=== PATIENT | female | born 1955 | race Caucasian/White ===

== ENCOUNTER 2018-08-20 05:41 | Day surgery (SDC) | payer MEDICAID, SELFPAY ==
[2018-08-12 14:36] VITALS: BMI 26.4
[2018-08-19 06:54] VITALS: BP 114/86; PULSE 83; RESP 16; TEMP 36.2; O2SAT 100; BMI 25.7
[2018-08-20 06:01] VITALS: BP 130/98; PULSE 85; RESP 16; TEMP 36.8; O2SAT 98; BMI 25.9
--- NOTE | 2018-08-20 06:30 | IMM_PTH ---
PATIENT: KAROL ASHTON LOC: EN U#:[id number] AGE/SX: 62/F ROOM: RE08/20/[address]: Dr. Enrique England MD : 1955 BED: DIS: 08/20/2018 SPEC #: [id number] RECD: 08/21/18 09:06 STATUS: SULLY REQ #: [id number] THEODORA: 08/20/18 06:[address]: Enrique England DEPT: IMMUNOHISTOCHEMISTRY RECD BY: Thea Gilbert ENTERED: 08/21/18 09:06 SP TYPE: IMMUNO OTHR DR: Dr. Melissa Kelly MD Tissues: A - Stomach, NOS Procedures: H Pylori (initial) PHYSICIAN & INSTITUTION [place] [address] SPECIMEN INFORMATION: Tissue Source: A - Gastric antrum biopsy Clinical Info: Anemia Specimen Number: [id number] CPT code: 58350 METHODOLOGY: Deparaffinized sections of prefer/formalin-fixed tissue or PAP/DQ stained slides are incubated with monoclonal/polyclonal antibodies/oligonucleotide probes. Localization is made via biotin free immunoperoxidase method. Appropriate controls are performed and reacted as expected. Results on target cell population are indicated in the following table: RESULTS: ANTIBODY / CLONE RESULT Block A H Pylori (polyclonal) negative These tests were developed and their performance characteristics determined by [facility]. They may not have been cleared or approved by the U.S. Food and Drug Administration. The FDA has determined that such clearance or approval is not necessary. INTERPRETATION: A. Gastric antrum, biopsy: Negative for Helicobacter pylori organisms. SJ:jessica 08/21/18
--- NOTE | 2018-08-20 06:30 | EGD_PTH ---
PATIENT: KAROL ASHTON LOC: EN U#:[id number] AGE/SX: 62/F ROOM: RE08/20/[address]: Dr. Enrique England MD : 1955 BED: DIS: 08/20/2018 SPEC #: [id number] RECD: 08/20/18 09:30 STATUS: SULLY ROSA MARIA #: [id number] THEODORA: 08/20/18 06:[address]: Enrique England DEPT: SURGICAL PATHOLOGY RECD BY: Kervin Hussein ENTERED: 08/20/18 12:31 SP TYPE: EGD BIOPSY OTHR DR: Dr. Melissa Kelly MD Tissues: A - Gastric mucous membrane B - Gastric mucous membrane C - Esophageal mucous membrane D - Transverse colon Procedures: Special Stain Group II Special Stain Group I Surgery Specimen Level IV GMS Stain (control) Alcian Blue/PAS (control) HEADER OPERATION: Colonoscopy, [place] [place] DIAGNOSIS: Anemia TISSUE SUBMITTED: A - Biopsy gastric antrum, H. pylori and path, B - Biopsy body of stomach polyp, C - Biopsy distal esophagus, D - Polyp mid transverse MICROSCOPIC DIAGNOSIS A. Gastric antrum, biopsy: Mild gastritis. See microscopic description and comment. B. Body of stomach polyp, biopsy: Consistent with fundic gland polyp. C. Distal esophagus, biopsy: Fragments of squamous epithelium and gastric epithelium with extensive ulceration, associated acute and chronic inflammation. Intestinal metaplasia (goblet cell metaplasia) is not identified. Special stain for fungi is negative for organisms; matched control is appropriate. See comment. D. Polyp mid transverse colon, biopsy: Tubular adenoma. Fragments of fecal material. SJ:jessica 08/21/18 COMMENT A. The results of immunohistochemistry for Helicobacter pylori will be reported separately ([id number]). C. Alcian blue/PAS stain with matched control is also used in the evaluation of the specimen. The specimen predominantly consists of squamous epithelium. MICROSCOPIC DESCRIPTION Slides are reviewed. A. The specimen shows fragments of gastric mucosa with chronic inflammatory cell infiltrates in the lamina propria consisting of lymphocytes and plasma cells, consistent with mild chronic gastritis. GROSS DESCRIPTION A - Received in fixative is one container labeled with the patient's name and designated biopsy gastric antrum. The specimen consists of one irregular fragment of light barkley soft tissue that measures 0.4 x 0.3 x 0.1 cm. The specimen is totally submitted in one cassette. B - Received in fixative is one container labeled with the patient's name and designated biopsy polyp body of stomach. The specimen consists of one irregular fragment of light barkley soft tissue that measures 0.4 x 0.3 x 0.1 cm. The specimen is totally submitted in one cassette. C - Received in fixative is one container labeled with the patient's name and designated biopsy distal esophagus. The specimen consists of multiple irregular fragments of light barkley soft tissue that in aggregate measure 1.5 x 1 x 0.1 cm. The specimen is totally submitted in one cassette. D - Received in fixative is one container labeled with the patient's name and designated polyp mid transverse. The specimen consists of multiple irregular fragments of barkley soft tissue mixed with fecal material that in aggregate measure 2.5 x 1 x 0.2 cm. The specimen is totally submitted in one cassette. / SJ:jessica 08/20/18 TC:1 CPT: 78294 x4, 13123, 71665
[2018-08-20 07:15] VITALS: BP 122/89; BP 130/98; PULSE 85; RESP 16; TEMP 36.4; O2SAT 100
[2018-08-20 07:20] VITALS: BP 130/98; BP 134/101; PULSE 82; RESP 16; O2SAT 98
[2018-08-20 07:25] VITALS: BP 130/98; BP 131/88; PULSE 82; RESP 16; O2SAT 98
[2018-08-20 07:30] VITALS: BP 130/98; BP 136/100; PULSE 80; RESP 16; TEMP 36.7; O2SAT 99
[2018-08-20 07:37] VITALS: BP 130/98
--- NOTE | 2018-08-25 10:16 | OP.ENDO_ITS ---
Patient Name: Katie Bingham Procedure Date: 08/20/2018 6:03 AM Date of : 1955 Age: 62 Procedure: Upper GI endoscopy Indications: Iron deficiency anemia Providers: Enrique England MD Referring MD: Enrique England MD Medicines: See the Anesthesia note for documentation of the administered medications Complications: No immediate complications. Procedure: Pre-Anesthesia Assessment: - Prior to the procedure, a History and Physical was performed, and patient medications and allergies were reviewed. The patient's tolerance of previous anesthesia was also reviewed. The risks and benefits of the procedure and the sedation options and risks were discussed with the patient. All questions were answered, and informed consent was obtained. Prior Anticoagulants: The patient has taken no previous anticoagulant or antiplatelet agents. ASA Grade Assessment: II - A patient with mild systemic disease. After reviewing the risks and benefits, the patient was deemed in satisfactory condition to undergo the procedure. After obtaining informed consent, the endoscope was passed under direct vision. Throughout the procedure, the patient's blood pressure, pulse, and oxygen saturations were monitored continuously. The gastroscope was introduced through the mouth, and advanced to the second part of duodenum. The upper GI endoscopy was accomplished without difficulty. The patient tolerated the procedure well. Scope In: 6:39:29 AM Scope Out: 6:47:11 AM Total Procedure Duration Time 0 hours 7 minutes 42 seconds Findings: The Z-line was irregular and was found 33 cm from the incisors. LA Grade B (one or more mucosal breaks greater than 5 mm, not extending between the tops of two mucosal folds) esophagitis with bleeding was found 33 to 36 cm from the incisors. Biopsies were taken with a cold forceps for histology. A medium-sized hiatal hernia was present. Diffuse mildly erythematous mucosa without bleeding was found in the gastric antrum. Biopsies were taken with a cold forceps for histology. Multiple sessile polyps with no stigmata of recent bleeding were found in the stomach. The polyp was removed with a cold biopsy forceps. Resection and retrieval were complete. The examined duodenum was normal. Impression: - Z-line irregular, 33 cm from the incisors. - LA Grade B reflux esophagitis. Biopsied. - Medium-sized hiatal hernia. - Erythematous mucosa in the antrum. Biopsied. - Multiple gastric polyps. Resected and retrieved. - Normal examined duodenum. Recommendation: - Discharge patient to home. - Resume previous diet. - Continue present medications. - Use Prilosec (omeprazole) 20 mg PO daily. - Telephone my office for pathology results in 1 week. Procedure Code(s): --- Professional --- 53321, Esophagogastroduodenoscopy, flexible, transoral; with biopsy, single or multiple Diagnosis Code(s): --- Professional --- K22.8, Other specified diseases of esophagus K21.0, Gastro-esophageal reflux disease with esophagitis K44.9, Diaphragmatic hernia without obstruction or gangrene K31.89, Other diseases of stomach and duodenum K31.7, Polyp of stomach and duodenum D50.9, Iron deficiency anemia, unspecified CPT copyright 2017 [employer]. All rights reserved. The codes documented in this report are preliminary and upon mortuary technician review may be revised to meet current compliance requirements. Enrique England MD 08/20/2018 7:16:16 AM This report has been signed electronically. Number of Addenda: 0 Note Initiated On: 08/20/2018 6:03 AM
--- NOTE | 2018-08-25 10:17 | OP.ENDO_ITS ---
Patient Name: Katie Bingham Procedure Date: 08/20/2018 6:48 AM Date of : 1955 Age: 62 Procedure: Colonoscopy Indications: Iron deficiency anemia Providers: Enrique England MD Referring MD: Enrique England MD Medicines: See the Anesthesia note for documentation of the administered medications Patient Profile: Last Colonoscopy: none. The patient's first colonoscopy is today. Complications: No immediate complications. Procedure: Pre-Anesthesia Assessment: - Prior to the procedure, a History and Physical was performed, and patient medications and allergies were reviewed. The patient's tolerance of previous anesthesia was also reviewed. The risks and benefits of the procedure and the sedation options and risks were discussed with the patient. All questions were answered, and informed consent was obtained. Prior Anticoagulants: The patient has taken no previous anticoagulant or antiplatelet agents. ASA Grade Assessment: II - A patient with mild systemic disease. After reviewing the risks and benefits, the patient was deemed in satisfactory condition to undergo the procedure. After I obtained informed consent, the scope was passed under direct vision. Throughout the procedure, the patient's blood pressure, pulse, and oxygen saturations were monitored continuously. The Colonoscope was introduced through the anus and advanced to the cecum, identified by appendiceal orifice and ileocecal valve. The colonoscopy was performed without difficulty. The patient tolerated the procedure well. The quality of the bowel preparation was good. The ileocecal valve and the appendiceal orifice were photographed. Scope In: 6:52:08 AM Scope Withdrawal Time 0 hours 9 minutes 23 seconds Scope Out: 7:09:05 AM Total Procedure Duration Time 0 hours 16 minutes 57 seconds Findings: Hemorrhoids were found on perianal exam. Many diverticula were found in the sigmoid colon and descending colon. A 8 mm polyp was found in the mid transverse colon. The polyp was sessile. The polyp was removed with a hot snare. Resection and retrieval were complete. Impression: - Hemorrhoids found on perianal exam. - Diverticulosis in the sigmoid colon and in the descending colon. - One 8 mm polyp in the mid transverse colon, removed with a hot snare. Resected and retrieved. Recommendation: - Discharge patient to home. - Resume previous diet. - Continue present medications. - Repeat colonoscopy in 3 years for surveillance. - Telephone my office for pathology results in 1 week. No signs of lower GI bleeding Blood loss is felt to be secondary to severe reflux esophagitis and likely additional use of NSAIDS Procedure Code(s): --- Professional --- 62358, Colonoscopy, flexible; with removal of tumor(s), polyp(s), or other lesion(s) by snare technique Diagnosis Code(s): --- Professional --- K64.9, Unspecified hemorrhoids D12.3, Benign neoplasm of transverse colon (hepatic flexure or splenic flexure) D50.9, Iron deficiency anemia, unspecified K57.30, Diverticulosis of large intestine without perforation or abscess without bleeding CPT copyright 2017 [employer]. All rights reserved. The codes documented in this report are preliminary and upon agricultural produce commission agent review may be revised to meet current compliance requirements. Enrique England MD 08/20/2018 7:19:44 AM This report has been signed electronically. Number of Addenda: 0 Note Initiated On: 08/20/2018 6:48 AM
--- OUTSIDE RECORDS SUMMARY | 2018-10-24 21:55 | XMS RPT_ITS ---
:1955 Author Organization [facility] Care Team Providers Name Role Phone BAN RODARTE (SYSTEMS TEST ENGINEER) Attending Unavailable TALAMPAS, ANTHONY D Referring Unavailable KARUNA BAKER (MISSING PERSONS INVESTIGATOR) Attending Unavailable TALAMPAS, ANTHONY D Referring Unavailable TALAMPAS, ANTHONY D Attending Unavailable TALAMPAS, ANTHONY D Referring Unavailable RODARTEBAN (SYSTEMS TEST ENGINEER) Referring Unavailable TALAMPAS, ANTHONY D Referring Unavailable TALAMPAS, ANTHONY D Referring Unavailable TALAMPAS, ANTHONY D Attending Unavailable TALAMPAS, ANTHONY D Referring Unavailable TALAMPAS, ANTHONY D Attending Unavailable TALAMPAS, ANTHONY D Referring Unavailable RODARTESTERLINGI (SYSTEMS TEST ENGINEER) Referring Unavailable Marylubul Enrique Attending Unavailable Talampas, Anthony Referring Unavailable Cebul, Enrique Attending Unavailable Talampas, Anthony Primary Care Unavailable Cebul, Enrique Attending Unavailable Cebul, Enrique Referring Unavailable Talampas, Anthony Primary Care Unavailable PROBLEMS PROBLEMS DATE TYPE CONDITION / CODE ATTENDING STATUS SOURCE 08/15/2018 Active Pain in unspecified NA Active [facility] joint / [place] M25.50(ICD-10) Repository 08/15/2018 Active Other specified NA Active [facility] abnormal [place] immunological Repository findings in serum / R76.8(ICD-10) 08/15/2018 Active Spontaneous NA Active [facility] ecchymoses / [place] R23.3(ICD-10) Repository 08/15/2018 Active Anemia, unspecified NA Active [facility] / D64.9(ICD-10) [place] Repository 07/30/2018 Active Abnormality of NA Active [facility] albumin / [place] R77.0(ICD-10) Repository 07/30/2018 Active Unspecified NA Active [facility] osteoarthritis, [place] unspecified site / Repository M19.90(ICD-10) 07/18/2018 Active Pain in left hand / NA Active [facility] M79.642(ICD-10) [place] Repository 07/18/2018 Active Pain in left toe(s) NA Active [facility] / M79.675(ICD-10) [place] Repository 07/18/2018 Active Other specified NA Active [facility] soft tissue [place] disorders / Repository M79.89(ICD-10) 01/20/2018 Active 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 [facility] (current) drug [place] therapy / Repository Z79.899(ICD-10) 01/20/2018 Active Hypothyroidism, NA Active [facility] unspecified / [place] E03.9(ICD-10) Repository 01/20/2018 Active Encounter for NA Active [facility] screening for [place] lipoid disorders / Repository Z13.220(ICD-10) 01/20/2018 Active Pure NA Active [facility] hypercholesterolemi [place] a, unspecified / Repository E78.00(ICD-10) 01/20/2018 Active Encounter for Active [facility] screening for [place] malignant neoplasm Repository of colon / Z12.11(ICD-10) PROCEDURES PROCEDURES No Procedure Records FoundRESULTS RESULTS OPERATIVE REPORT - Observed: 08/25/2018 Status: F Source: [facility] 11:22 AM [facility] REPOSITORY [facility] Medical Records Department [address] [place] [address] Operative Report - Endoscopy MR#: [id number] Acct: [id number] Name: KAROL ASHTON José Luis Rep #: [id number] : 1955 62 From: Enrique England MD PCP: Anthony Kelly MD Status: [facility] Patient Name: Karol Kovacssabrina Ashton Procedure Date: 08/20/2018 6:48 AM Date of : 1955 Age: 62 Procedure: Colonoscopy Indications: Iron deficiency anemia Providers: Enrique England MD Referring MD: Enrique England MD Medicines: See the Anesthesia note for documentation of the administered medications Patient Profile: Last Colonoscopy: none. The patient's first colonoscopy is today. Complications: No immediate complications. Procedure: Pre-Anesthesia Assessment: - Prior to the procedure, a History and Physical was performed, and patient medications and allergies were reviewed. The patient's tolerance of previous anesthesia was also reviewed. The risks and benefits of the procedure and the sedation options and risks were discussed with the patient. All questions were answered, and informed consent was obtained. Prior Anticoagulants: The patient has taken no previous anticoagulant or antiplatelet agents. ASA Grade Assessment: II - A patient with mild systemic disease. After reviewing the risks and benefits, the patient was deemed in satisfactory condition to undergo the procedure. After I obtained informed consent, the scope was passed under direct vision. Throughout the procedure, the patient's blood pressure, pulse, and oxygen saturations were monitored continuously. The Colonoscope was introduced through the anus and advanced to the cecum, identified by appendiceal orifice and ileocecal valve. The colonoscopy was performed without difficulty. The patient tolerated the procedure well. The quality of the bowel preparation was good. The ileocecal valve and the appendiceal orifice were photographed. Scope In: 6:52:08 AM Scope Withdrawal Time 0 hours 9 minutes 23 seconds Scope Out: 7:09:05 AM Total Procedure Duration Time 0 hours 16 minutes 57 seconds Findings: Hemorrhoids were found on perianal exam. Many diverticula were found in the sigmoid colon and descending colon. A 8 mm polyp was found in the mid transverse colon. The polyp was sessile. The polyp was removed with a hot snare. Resection and retrieval were complete. Impression: - Hemorrhoids found on perianal exam. - Diverticulosis in the sigmoid colon and in the descending colon. - One 8 mm polyp in the mid transverse colon, removed with a hot snare. Resected and retrieved. Recommendation: - Discharge patient to home. - Resume previous diet. - Continue present medications. - Repeat colonoscopy in 3 years for surveillance. - Telephone my office for pathology results in 1 week. No signs of lower GI bleeding Blood loss is felt to be secondary to severe reflux esophagitis and likely additional use of NSAIDS Procedure Code(s): --- Professional --- 57080, Colonoscopy, flexible; with removal of tumor(s), polyp(s), or other lesion(s) by snare technique Diagnosis Code(s): --- Professional --- K64.9, Unspecified hemorrhoids D12.3, Benign neoplasm of transverse colon (hepatic flexure or splenic flexure) D50.9, Iron deficiency anemia, unspecified K57.30, Diverticulosis of large intestine without perforation or abscess without bleeding CPT copyright 2017 [employer]. All rights reserved. The codes documented in this report are preliminary and upon clinical nursing instructor review may be revised to meet current compliance requirements. Enrique England MD 08/20/2018 7:19:44 AM This report has been signed electronically. Number of Addenda: 0 Note Initiated On: 08/20/2018 6:48 AM 08/20/18 1451 Date Enrique England MD Cosigner Signature: Date (if indicated) CC: Anthony Kelly MD; Enrique England MD Date Dictated: 08/20/18 0648 Date Transcribed: Blue Prints Trimmer: MILADIS Signed OPERATIVE REPORT - Observed: 08/25/2018 Status: F Source: [facility] 11:21 AM [facility] REPOSITORY [facility] Medical Records Department [address] [place] [address] Operative Report - Endoscopy MR#: [id number] Acct: [id number] Name: KAROL ASHTON Rep #: [id number] : 1955 62 From: Enrique England MD PCP: Anthony Kelly MD Status: [facility] Patient Name: Karol Ashton Procedure Date: 08/20/2018 6:03 AM Date of : 1955 Age: 62 Procedure: Upper GI endoscopy Indications: Iron deficiency anemia Providers: Enrique England MD Referring MD: Enrique England MD Medicines: See the Anesthesia note for documentation of the administered medications Complications: No immediate complications. Procedure: Pre-Anesthesia Assessment: - Prior to the procedure, a History and Physical was performed, and patient medications and allergies were reviewed. The patient's tolerance of previous anesthesia was also reviewed. The risks and benefits of the procedure and the sedation options and risks were discussed with the patient. All questions were answered, and informed consent was obtained. Prior Anticoagulants: The patient has taken no previous anticoagulant or antiplatelet agents. ASA Grade Assessment: II - A patient with mild systemic disease. After reviewing the risks and benefits, the patient was deemed in satisfactory condition to undergo the procedure. After obtaining informed consent, the endoscope was passed under direct vision. Throughout the procedure, the patient's blood pressure, pulse, and oxygen saturations were monitored continuously. The gastroscope was introduced through the mouth, and advanced to the second part of duodenum. The upper GI endoscopy was accomplished without difficulty. The patient tolerated the procedure well. Scope In: 6:39:29 AM Scope Out: 6:47:11 AM Total Procedure Duration Time 0 hours 7 minutes 42 seconds Findings: The Z-line was irregular and was found 33 cm from the incisors. LA Grade B (one or more mucosal breaks greater than 5 mm, not extending between the tops of two mucosal folds) esophagitis with bleeding was found 33 to 36 cm from the incisors. Biopsies were taken with a cold forceps for histology. A medium-sized hiatal hernia was present. Diffuse mildly erythematous mucosa without bleeding was found in the gastric antrum. Biopsies were taken with a cold forceps for histology. Multiple sessile polyps with no stigmata of recent bleeding were found in the stomach. The polyp was removed with a cold biopsy forceps. Resection and retrieval were complete. The examined duodenum was normal. Impression: - Z-line irregular, 33 cm from the incisors. - LA Grade B reflux esophagitis. Biopsied. - Medium-sized hiatal hernia. - Erythematous mucosa in the antrum. Biopsied. - Multiple gastric polyps. Resected and retrieved. - Normal examined duodenum. Recommendation: - Discharge patient to home. - Resume previous diet. - Continue present medications. - Use Prilosec (omeprazole) 20 mg PO daily. - Telephone my office for pathology results in 1 week. Procedure Code(s): --- Professional --- 79785, Esophagogastroduodenoscopy, flexible, transoral; with biopsy, single or multiple Diagnosis Code(s): --- Professional --- K22.8, Other specified diseases of esophagus K21.0, Gastro-esophageal reflux disease with esophagitis K44.9, Diaphragmatic hernia without obstruction or gangrene K31.89, Other diseases of stomach and duodenum K31.7, Polyp of stomach and duodenum D50.9, Iron deficiency anemia, unspecified CPT copyright 2017 [employer]. All rights reserved. The codes documented in this report are preliminary and upon clinical nursing instructor review may be revised to meet current compliance requirements. Enrique England MD 08/20/2018 7:16:16 AM This report has been signed electronically. Number of Addenda: 0 Note Initiated On: 08/20/2018 6:03 AM 08/20/18 1451 Date Enrique England MD Cosigner Signature: Date (if indicated) CC: Anthony Kelly MD; Enrique England MD Date Dictated: 08/20/18602 Date Transcribed: Blue Prints Trimmer: MILADIS Signed EGD ([facility] S[facility]) Observed: 08/20/2018 Status: F Source: [place] 6:30 AM [facility] REPOSITORY Patient: KAROL ASHTON : 1955 (62/F) Acct Num: [id number] Phys: Samanta BAUTISTA,Enrique Unit Num: [id number] Loc: EN Specimen: [id number] Received: 08/20/18929 Spec Type: EGD BIOPSY TISSUES 1 TISSUES: A. Gastric mucous membrane B. Gastric mucous membrane C. Esophageal mucous membrane D. Transverse colon COMMENT A. The results of immunohistochemistry for Helicobacter pylori will be reported separately ([id number]). C. Alcian blue/PAS stain with matched control is also used in the evaluation of the specimen. The specimen predominantly consists of squamous epithelium. GROSS DESCRIPTION A - Received in fixative is one container labeled with the patient's name and designated biopsy gastric antrum. The specimen consists of one irregular fragment of light barkley soft tissue that measures 0.4 x 0.3 x 0.1 cm. The specimen is totally submitted in one cassette. B - Received in fixative is one container labeled with the patient's name and designated biopsy polyp body of stomach. The specimen consists of one irregular fragment of light barkley soft tissue that measures 0.4 x 0.3 x 0.1 cm. The specimen is totally submitted in one cassette. C - Received in fixative is one container labeled with the patient's name and designated biopsy distal esophagus. The specimen consists of multiple irregular fragments of light barkley soft tissue that in aggregate measure 1.5 x 1 x 0.1 cm. The specimen is totally submitted in one cassette. D - Received in fixative is one container labeled with the patient's name and designated polyp mid transverse. The specimen consists of multiple irregular fragments of barkley soft tissue mixed with fecal material that in aggregate measure 2.5 x 1 x 0.2 cm. The specimen is totally submitted in one cassette. / VASYL:jessica 08/20/18 TC:1 CPT: 99434 x4, 35295, 52128 HEADER OPERATION: Colonoscopy, EGD ([facility]) PRE-OP DIAGNOSIS: Anemia TISSUE SUBMITTED: A - Biopsy gastric antrum, H. pylori and path, B - Biopsy body of stomach polyp, C - Biopsy distal esophagus, D - Polyp mid transverse MICROSCOPIC DESCRIPTION Slides are reviewed. A. The specimen shows fragments of gastric mucosa with chronic inflammatory cell infiltrates in the lamina propria consisting of lymphocytes and plasma cells, consistent with mild chronic gastritis. MICROSCOPIC DIAGNOSIS A. Gastric antrum, biopsy: Mild gastritis. See microscopic description and comment. B. Body of stomach polyp, biopsy: Consistent with fundic gland polyp. C. Distal esophagus, biopsy: Fragments of squamous epithelium and gastric epithelium with extensive ulceration, associated acute and chronic inflammation. Intestinal metaplasia (goblet cell metaplasia) is not identified. Special stain for fungi is negative for organisms; matched control is appropriate. See comment. D. Polyp mid transverse colon, biopsy: Tubular adenoma. Fragments of fecal material. SJ:jessica 08/21/18 Signed Perez Espinal MD 08/21/18 <signature on file> Performed By: #### PEGRoro #### [facility] [address] [place] [address]. [place], [address] IMMUNOHISTOCHEMISTRY Observed: 08/20/2018 Status: F Source: [facility] 6:30 AM [facility] REPOSITORY Patient: KAROL ASHTON : 1955 (62/F) Acct Num: [id number] Phys: Enrique England MD Unit Num: [id number] Loc: EN Specimen: [id number] Received: 08/21/18905 Spec Type: IMMUNO TISSUES 1 TISSUES: A. Stomach, NOS SPECIMEN INFORMATION: Tissue Source: A - Gastric antrum biopsy Clinical Info: Anemia Specimen Number: [id number] CPT code: 06986 METHODOLOGY: Deparaffinized sections of prefer/formalin-fixed tissue or PAP/DQ stained slides are incubated with monoclonal/polyclonal antibodies/oligonucleotide probes. Localization is made via biotin free immunoperoxidase method. Appropriate controls are performed and reacted as expected. Results on target cell population are indicated in the following table: RESULTS: ANTIBODY / CLONE RESULT Block A H Pylori (polyclonal) negative These tests were developed and their performance characteristics determined by [facility]. They may not have been cleared or approved by the U.S. Food and Drug Administration. The FDA has determined that such clearance or approval is not necessary. INTERPRETATION: A. Gastric antrum, biopsy: Negative for Helicobacter pylori organisms. SJ:jessica 08/21/18 PHYS[facility] [address] [address] Signed Perez Espinal MD 08/21/18 <signature on file> Performed By: #### PIMM #### [facility] [address] [place] [address]. [place], [place], [id number] URINALYSIS WITH Collected: 08/15/2018 Status: F Source: [facility] 12:07 PM [facility] REPOSITORY TYPE CODE TESTS RESULT OUT OF RANGE REFERENCE UNITS LAB UCOL Yellow Color Yellow LAB [facility] Clear Clarity Abnormal Cloudy Alert LAB UGLUC Negative mg/dL Glucose, Urine Negative LAB UBIL Negative Bilirubin, Urine Negative LAB UKET Negative Ketones, Urine Negative LAB USPG 1.005-1.030 High Specific [place], Ur 1.035 LAB UHGB Negative Hemoglobin/Blood, Negative Ur LAB UPH 4.5-8.0 pH 5.0 LAB UPROT Negative mg/dL Protein, Abnormal Urine 30 Alert LAB UUROB Normal Urobilinogen Normal LAB UNITR Negative Nitrites Negative LAB ULKEST Negative Leukest Abnormal 1+ Alert LAB UCOM Comments SEE COMMENT Result Comment: N/A LAB UMCOM Urine SEE Negro Comment COMMENT Result Comment: N/A LAB UWBC 0-5 /HPF Abnormal Alert WBC 6-10 LAB URBC 0-3 /HPF Abnormal Alert RBC 3-5 LAB UCAST 0 /LPF Abnormal Alert Cast SEE COMMENT Result Comment: 1-3 Hyaline Cast LAB UEPI /HPF Epithelial SEE Cells COMMENT Result Comment: Few Squamous Epithelial Cells LAB UCRYS 0 /HPF Abnormal Alert Crystals SEE COMMENT Result Comment: Many Calcium Oxalate Crystal Performed By: #### UAWMIC #### [facility] [address] [place], [place] [address] Observed: 08/15/2018 Status: F Source: [place] URINE CULTURE 12:07 PM [facility] REPOSITORY Sp. Request/Comment: - Specimen received in preservative Culture Result - 10,000 - <50,000 CFU/ml Lactose positive gram negative bacilli --> ABNORMAL ALERT Insignificant colony count. No further workup. --> ABNORMAL ALERT 10,000 - <50,000 CFU/ml - -> ABNORMAL ALERT Lactose negative gram negative bacilli --> ABNORMAL ALERT Insignificant colony count. No further workup. --> ABNORMAL ALERT Performed By: #### URCUL #### [facility] [address] [place] [address] [place] CBC Collected: 08/15/2018 Status: F Source: [place] 11:50 AM [facility] REPOSITORY TYPE CODE TESTS RESULT OUT OF REFERENCE UNITS RANGE LAB WWBC 3.70-11.00 k/uL [place] WBC 9.04 LAB WRBC 3.90-5.20 m/uL Low [place] RBC 3.71 LAB WHGB 11.5-15.5 g/dL Low [place] Hemoglobin 10.4 LAB WHCT 36.0-46.0 % Low [place] Hematocrit 32.9 LAB WMCV 80.0-100.0 fL [place] MCV 88.7 LAB WMCH 26.0-34.0 pg [place] MCH 28.0 LAB WMCHC 30.5-36.0 g/dL [place] MCHC 31.6 LAB WRDW 11.5-15.0 % [place] High RDW 15.1 LAB WPLT 150-400 k/uL [place] High Platelet Cnt 504 LAB WMPV 9.0-12.7 fL Low [place] MPV 8.9 Result Comment: Test performed at: [facility], [address] [place] [address] Rd[address] [place] [address]. C-REACTIVE PROTEIN Collected: 08/15/2018 Status: F Source: [place] 11:50 AM [facility] REPOSITORY TYPE CODE TESTS RESULT OUT OF REFERENCE UNITS RANGE LAB CRP <0.9 mg/dL High C-Reactive 8.0 Protein Performed By: #### CRP, CK, RF, PT, PTT, WSR, DNAAB #### [facility] [address] [place], [place] [address] CK Collected: 08/15/2018 Status: F Source: [facility] 11:50 AM [facility] REPOSITORY TYPE CODE TESTS RESULT OUT OF RANGE REFERENCE UNITS LAB CK 42-196 U/L CK 62 Performed By: #### CRP, CK, RF, PT, PTT, WSR, DNAAB #### [address] [place], [place] [address] RHEUMATOID FACTOR Collected: 08/15/2018 Status: F Source: [place] 11:50 AM [facility] REPOSITORY TYPE CODE TESTS RESULT OUT OF REFERENCE UNITS RANGE LAB RF <16 IU/mL High Rheumatoid 402 Factor Performed By: #### CRP, CK, RF, PT, PTT, WSR, DNAAB #### [facility] [address] [place], [place] [address] PROTIME Collected: 08/15/2018 Status: F Source: [place] 11:50 AM [facility] REPOSITORY TYPE CODE TESTS RESULT OUT OF RANGE REFERENCE UNITS LAB PSEC 9.7-13.0 sec PT Sec 11.2 LAB INR 0.9-1.3 PT INR 1.1 Result Comment: Vitamin K Antagonist (VKA) Therapeutic Range: INR 2 to 3 (Target INR of 2.5) Note: For patients treated with VKA drugs, such as warfarin, the [place] [employer] 2012 Guideline recommends a therapeutic INR range of 2 to 3 (target INR of 2.5). This recommendation includes high-risk patients with antiphospholipid syndrome with previous arterial or venous thromboembolism, current-generation mechanical or bioprosthetic aortic heart valve replacement. Note: Patients with mechanical aortic valve replacement and additional risk factors for thromboembolic events (atrial fibrillation, previous thromboembolism, LV dysfunction, hypercoagulable conditions) or an older generation mechanical AVR (i.e., ball in-Cage) or any mechanical MVR should have a INR therapeutic range of 2.5 to 3.5 (target INR of 3). Willard HUERTA, et al. Chest 2012, 141:7S-47S Rik RA, et al. [facility] 2017, 70: 252-289 Performed By: #### CRP, CK, RF, PT, PTT, WSR, DNAAB #### [facility] [address] [place], [place] [address] APTT Collected: 08/15/2018 Status: F Source: [place] 11:50 AM [facility] REPOSITORY TYPE CODE TESTS RESULT OUT OF RANGE REFERENCE UNITS LAB APTT 23.0-32.4 sec APTT 29.2 Result Comment: Unfractionated Heparin Therapeutic Ranges: Standard Heparin Nomogram: 53 to 78 seconds (anti-Xa level of 0.3 to 0.7 U/ml) Low Dose/ACS Nomogram: 49 to 67 seconds (anti-Xa level of 0.2 to 0.5 U/ml) Stroke Treatment Nomogram: 49 to 67 seconds (anti-Xa level of 0.2 to 0.5 U/ml) Note: The APTT therapeutic range has been determined for the current lot of laboratory APTT reagent in use throughout the [facility]. Performed By: #### CRP, CK, RF, PT, PTT, WSR, DNAAB #### [facility] [address] [place], [place] [address] SED RATE WESTERGREN Collected: 08/15/2018 Status: F Source: [place] 11:50 AM [facility] REPOSITORY TYPE CODE TESTS RESULT OUT OF REFERENCE UNITS RANGE LAB WSR 0-20 mm/hr Sed Rate High [place] 39 Performed By: #### CRP, CK, RF, PT, PTT, WSR, DNAAB #### [facility] [address] [place], [place] [address] DNA ANTIBODY Collected: 08/15/2018 Status: F Source: [place] 11:50 AM [facility] REPOSITORY TYPE CODE TESTS RESULT OUT OF REFERENCE UNITS RANGE LAB DNAAB1 <30 IU/mL DNA Antibody <12 Result Comment: Negative for ds DNA Antibodies Negative: <30 IU/mL Equivocal: 30-74 IU/mL Positive: >74 IU/mL Performed By: #### CRP, CK, RF, PT, PTT, WSR, DNAAB #### [facility] [address] [place], [place] [address] SURGERY VISIT REPORT Observed: 08/12/2018 Status: F Source: [place] 4:37 PM [facility] REPOSITORY [facility] [address] [place] [address]. 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 Required: No Is patient in pain?: No Allergies No Known Allergies Allergy (Verified 08/12/18 14:36) Medications acetaminophen ER 650 mg tablet,extended release 650 mg PO Q8H PRN tab 08/12/18 [History Confirmed 08/12/18] cholecalciferol (vitamin D3) 2,000 unit capsule 2,000 unit PO DAILY 08/12/18 [History Confirmed 08/12/18] citalopram 20 mg tablet 20 mg PO DAILY 08/12/18 [History Confirmed 08/12/18] ferrous sulfate 324 mg (65 mg iron) tablet,delayed release 324 mg PO DAILY tab 08/12/18 [History Confirmed 08/12/18] levothyroxine 88 mcg tablet 88 mcg PO DAILY 08/12/18 [History Confirmed 08/12/18] melatonin 3 mg tablet 6 mg PO HS PRN tab 08/12/18 [History Confirmed 08/12/18] PFSH Medical History Fatigue (Acute) Shortness of breath (Acute) Anxiety (Acute) Arthritis (Acute) Thyroid disease (Acute) Mental disability (Acute) Depression (Acute) Bunion of left foot (Acute) Anemia (Acute) Surgical History Hx of excision of mass (Acute) Hx of eye surgery (Acute) Hx of wisdom tooth extraction (Acute) Family History Mother Heart disease Hypertension Father Cancer Social History Smoking Status: Never smoker second hand exposure: No alcohol intake: never substance use type: does not use caffeine: Yes frequency: does not exercise HPI HPI HPI: KAROL ASHTON, is a 62 F who presents to the office today for surgical consultation regarding anemia. The patient's primary care physician is Dr. Anthony Kelly the patient is referred to assist with proceeding with endoscopic evaluation locally and a written compromise surgical consult recommendations were returned to her. The patient does have some developmental disability. Recently she has been having some troubles with pain of her shoulders and pain of her knees. For that reason she was taking ibuprofen and naproxen. She then developed some left hand swelling and swelling of her feet. Reports she was placed on steroids with improvement. During her evaluation however it was noted that January 20 her hemoglobin is 13.6 and then on July 18, 2018 it was 10.9 and then on July 30, 2018 it was 11.2. As of July 30, 2018 her iron level was low at 33 with a TIBC normal at 286 and a transferrin saturation low at 12 The patient does not carolina denies foul-smelling stool or bright red blood. When she was painful her appetite had decreased but I am not getting a distinct history of any significant weight loss. She has never had a previous colonoscopy. She is not aware of any family history of colon cancer. There is source of her anemia is undetermined. With the nonsteroidal medication this may be either upper GI or colonic source ROS General General: Yes fatigue; no weight change, appetite, colon cancer, breast cancer or weakness HEENT HEENT: Yes eye surgery; no difficulty swallowing, eye injury, swollen glands or hoarseness Endo Endocrine: Yes thyroid disease; no diabetes mellitus, thyroid cancer, Hair loss, heat intolerance or cold intolerance Skin Skin: No rash or changing moles Musc Musculoskeletal: Yes back problems and arthritis; no rheumatoid arthritis, gout or joint pain Cardio Cardiovascular: No murmur, pacemaker, heart disease, atrial fibrillation, high blood pressure, heart attack, heart stent, palpitations, shortness of breat with exertion or chest pain Psych Psychiatric: Yes depression and anxiety; no hearing voices Resp Respiratory: Yes shortness of breath, No sleep apnea, No cough, No COPD, No asthma, No emphysema, No wheezing Gastro Gastrointestinal: No abdominal pain, No nausea or vomiting, No diarrhea, No constipation, No blood in stool, No acid reflux, No hemorrhoids, No ulcers, No gallbladder problem, No black,tarry stools Kaveh Hematologic: Yes anemia, No blood thinners, No blood disorders, No bleeding, No blood clots Neuro Neurologic: No system reviewed and no additional complaints, except as docu, No as per HPI, No abnormal walking, No abnormal hearing, No abnormal movements, No abnormal speech, No behavioral changes, No burning sensations, No confusion, No seizure-like activity, No unsteadiness, No dizziness, No localized weakness, No frequent falls, No headache(s), No lack of coordination, No loss of vision, No memory loss, No numbness, No other visual disturbances, No radiating pain, No restless legs, No sensory deficit, No fainting, No tingling, No tremor(s), No weakness, No other Exam Const General: cooperative, no acute distress Nutritional Appearance: average body habitus Orientation: alert, oriented x3 Resp Effort AND Inspection: other (Slightly diminished respiratory excursion) Auscultation: clear to auscultation bilaterally Cardio Rate: regular rate Rhythm: regular rhythm Heart Sounds: no murmurs GI Palpation: soft, no hepatosplenomegaly Auscultation: normal bowel sounds Skin General: no rashes or lesions noted Neuro General: alert, awake, oriented x3 Extrem General: no calf tenderness bilaterally Psych Affect: normal affect Assessment AND Plan Plan I am recommending to the patient a combined esophagogastroduodenoscopy with possible biopsy as well as colonoscopy with possible biopsy or polypectomy is indicated. She is aware of the technique, benefits, risks, alternatives. I propose that we proceed with this under monitored anesthesia care for patient comfort. I suspect the nonsteroidal anti-inflammatory agents at which she was using for her knee and shoulders likely were etiologic to her problem. As noted above she has never had a previous colonoscopy. I appreciate the opportunity of assisting with her surgical care CC: Dr. Anthony England M.D., F.A.C.S. Coding Level of Care Code Exp prob focused,[facility] 08/12/18 1637 <Electronically signed by Enrique England MD> Date Enrique England MD Cosigner Signature: Date (if applicable) CC: Anthony Kelly MD CBC Collected: 08/12/2018 Status: F Source: [place] 3:33 PM [facility] REPOSITORY TYPE CODE TESTS RESULT OUT OF REFERENCE UNITS RANGE LAB WBC 3.70-11.00 k/uL WBC 7.24 LAB RBC 3.90-5.20 m/uL Low RBC 3.62 LAB HGB 11.5-15.5 g/dL Low Hemoglobin 10.4 LAB HCT 36.0-46.0 % Low Hematocrit 32.1 LAB MCV 80.0-100.0 fL MCV 88.7 LAB MCH 26.0-34.0 pG MCH 28.7 LAB MCHC 30.5-36.0 g/dL MCHC 32.4 LAB RDWCV 11.5-15.0 % RDW-CV 14.6 LAB PLTCT 150-400 k/uL Platelet High Count 483 LAB MPV 9.0-12.7 fL MPV 9.4 LAB ABSNUC <0.01 k/uL Absolute nRBC <0.01 Performed By: #### CBC #### [facility] [address] [place], [place] [address] HISTORY PHYSICAL Observed: 07/31/2018 Status: COMPLETED Source: [place] 2:40 PM [facility] REPOSITORY HNO ID: [id number] Author: Karuna Anderson) Samuel Service: (none) Author Type: Nurse Practitioner Type: HANDP Filed: 07/31/2018 5:31 PM Note Text: Karol Ashton a 62 year old female who is a consultation requested by Dr. Kelly for an opinion regarding anemia. My final recommendations will be communicated back to the requesting physician by way of shared Medical record. The patient has not been seen previously. The patient denies a family history of colon cancer. She is accompanied by her friend Blossom Kirkpatrick. Component Latest Ref Rng AND Units 01/20/2018 07/18/2018 07/30/2018 WBC 3.70 - 11.00 k/uL 5.24 11.72 (H) 10.76 RBC 3.90 - 5.20 m/uL 4.45 3.78 (L) 3.88 (L) Hemoglobin 11.5 - 15.5 g/dL 13.6 10.9 (L) 11.2 (L) Hematocrit 36.0 - 46.0 % 43.2 35.1 (L) 34.9 (L) MCV 80.0 - 100.0 fL 97.1 92.9 89.9 MCH 26.0 - 34.0 pG 30.6 28.8 28.9 MCHC 30.5 - 36.0 g/dL 31.5 31.1 32.1 RDW-CV 11.5 - 15.0 % 13.4 12.8 14.2 Platelet Count 150 - 400 k/uL 253 478 (H) 354 MPV 9.0 - 12.7 fL 10.7 9.7 9.2 Neut% % 77.6 Abs Neut (ANC) 1.45 - 7.50 k/uL 8.35 (H) Lymph% % 11.8 Abs Lymph 1.00 - 4.00 k/uL 1.27 Lamb% % 8.9 Abs Lamb <0.87 k/uL 0.96 (H) Eosin% % 1.4 Abs Eosin <0.46 k/uL 0.15 Baso% % 0.3 Abs Baso <0.11 k/uL 0.03 Nucleated Reds 0 /100 WBC 0.0 Absolute nRBC <0.01 k/uL <0.01 <0.01 <0.01 Diff Type Auto Diff Component Latest Ref Rng AND Units 07/30/2018 Iron 41 - 186 ug/dL 33 (L) TIBC 232 - 386 ug/dL 286 Transferrin Saturation 15 - 57 % 12 (L) Ferritin 14.7 - 205.1 ng/mL 348.0 (H) Component Latest Ref Rng AND Units 07/18/2018 07/30/2018 Protein, Total 6.3 - 8.0 g/dL 6.8 Albumin 3.9 - 4.9 g/dL 3.6 (L) Calcium 8.5 - 10.2 mg/dL 10.0 9.4 Bilirubin, Total 0.2 - 1.3 mg/dL 0.2 Alkaline Phosphatase 34 - 123 U/L 69 AST 13 - 35 U/L 22 Glucose 74 - 99 mg/dL 94 79 BUN 7 - 21 mg/dL 27 (H) 19 Creatinine 0.58 - 0.96 mg/dL 0.96 0.92 Sodium 136 - 144 mmol/L 136 132 (L) Potassium 3.7 - 5.1 mmol/L 4.6 4.5 Chloride 97 - 105 mmol/L 97 92 (L) CO2 22 - 30 mmol/L 24 27 Anion Gap 9 - 18 mmol/L 15 13 ALT 7 - 38 U/L 12 eGFR- >60 >60 eGFR-All Other Races . 59 >60 Component Latest Ref Rng AND Units 01/20/2018 Occult Blood, Stool Negative Negative Presenting complaint: The patient presents today having been on prednisone and ibuprofen for joint pain. She denies an upset stomach or nasuea. Now using Tylenol. Having a bowel movement every day to every other day. No black stool. No blood. She denies any abdominal pain unless I have to go to the bathroom. The discomfort will resolve after her bowels move. She tells me that her stools are formed. She denies straining. The patient denies nausea or vomiting. She denies heartburn or indigestion. She denies difficulty swallowing food or medications. Blossom tells me that she has noticed that the patient hasn't had the best appetite lately. The patient tells me that she sometimes gets hungry. She lives alone and eats alone. REVIEW OF SYSTEMS: GENERAL: No weight loss, malaise or fevers Last 10 Encounter Wt Readings: Date: Wt: 07/31/2018 61.2 kg (135 lb) 07/30/2018 59.9 kg (132 lb) 07/18/2018 60.3 kg (133 lb) 01/20/2018 58.5 kg (129 lb) 07/16/2017 56.7 kg (125 lb) 11/21/2015 58.5 kg (129 lb) 06/29/2014 63.5 kg (140 lb) 03/01/2014 60.8 kg (134 lb) 02/15/2012 54.4 kg (120 lb) RESPIRATORY: Negative for cough, hemoptysis, wheezing, COPD, dyspnea or shortness of breath CARDIOVASCULAR: Negative for chest pain, leg swelling, hypertension, CHF or palpitations GI: The patient states that her appetite has been adequate. She does not get hungry. There has been no nausea, no vomiting. She denies dysphagia and denies odynophagia. There has not been indigestion or heartburn. There has not been regurgitation. Bowel habits have been regular. There has not been diarrhea. There has not been constipation. The patient denies rectal bleeding. There has not been melena. No abdominal pain. LIFE SCIENTISTS: Negative for abnormal vaginal bleeding, abnormal vaginal discharge. PSYCH: Positive for anxiety or anxiousness. HEMATOLOGY/LYMPHOLOGY Negative for prolonged bleeding, bruising easily or swollen nodes ENDOCRINE: No diabetes. Positive for hypothyroid. NEURO: No history of headaches, syncope, paralysis, seizures or tremors All other reviewed and negative other than HPI. PAST MEDICAL HISTORY Diagnosis Date - Anemia - Bunion left foot - Depression - Mental disability - Thyroid disease PAST SURGICAL HISTORY Procedure Laterality Date - EXTRACTION ERUPTED TOOTH/EXR teenager - PAST SURGICAL HISTORY OF eyes - PAST SURGICAL HISTORY OF back surgery (28 years old) FAMILY HISTORY Problem Relation Age of Onset - Stroke Mother - Hypertension Mother - Cancer Father - Stroke Maternal Grandmother - None Other Current Outpatient Prescriptions: acetaminophen (ARTHRITIS PAIN RELIEVER) 650 mg CR tablet Take 650 mg by mouth every 8 hours as needed. Disp: Rfl: cholecalciferol, vitamin D3, (VITAMIN D-3) 400 unit cap Take 1 capsule by mouth once daily. Disp: Rfl: citalopram (CELEXA) 20 mg tablet Take 1 tablet by mouth once daily. Disp: 30 tablet Rfl: 11 Fish,Saf,Flx,Brg Oils-O3,6,9#2 (YDDJ-BNMF-VHTYNB OIL) 125-845-207-50 mg cap Take by mouth once daily. Disp: Rfl: ibuprofen (MOTRIN) 200 mg tablet Take 200 mg by mouth every 6 hours as needed. Disp: Rfl: iron bisgly,ps-FA-B-C#12-succ 65 mg-65 mg -1,000 mcg (24) tab Take by mouth. Disp: Rfl: levothyroxine (SYNTHROID) 75 mcg tablet TAKE 1 TABLET BY MOUTH ONCE DAILY. TAKE ON EMPTY STOMACH. FOR THYROID Disp: 30 tablet Rfl: 11 melatonin 3 mg tablet Take 2 tablets by mouth once daily. Disp: 60 tablet Rfl: 5 multivitamin tablet Take 1 tablet by mouth once daily. Disp: Rfl: 0 No current facility-administered medications for this visit. SOCIAL HISTORY: Patient is single. She has never smoked. She reports her alcohol use as never. She denies recreational drug use. PHYSICAL EXAMINATION: Blood pressure 113/77, pulse 92, height 152.4 cm (5'), weight 61.2 kg (135 lb). General Appearance: Well appearing, alert, in no acute distress, well-hydrated, well nourished. Skin: Skin color, texture, turgor normal, no suspicious rashes or lesions. Head: Normocephalic, no masses, lesions or abnormalities. Eyes: Anicteric sclera. Oropharynx: Lips, mucosa, and tongue normal, oropharynx normal. Teeth in good repair. Neck: Supple, no adenopathy; thyroid symmetric, normal size. Lungs: lungs clear to auscultation. No wheezing, rhonchi, rales. Heart: RRR without murmur. Abdomen: Abdomen soft, non-tender. Bowel sounds normal. No masses, organomegaly. Extremities: No deformities, edema. Peripheral Pulses: Normal. Impression: iron deficiency anemia. Plan: The patient will be scheduled for an upper endoscopy as well as a colonoscopy. She is extremely anxious and will benefit from MAC. Preparation for the procedures, using GoLytely as the laxative, have been explained in detail. The risks, benefits, anticipated outcomes and possible complications were mentioned. I explained the procedure in understandable terms and the patient was given printed material concerning the planned procedure. The patient had the opportunity to ask questions concerning the planned procedure. The patient freely consents to the planned procedure. Blossom Kirkpatrick has requested Dr. Enrique England and the patient agrees. We will facilitate an appointment. I have personally interviewed and examined this patient. I have read the information that the PACKAGING ASSOCIATE documented in this encounter. I spent 25 minutes in the visit, with more than 50% of the total bzfx-jb-cect time of the visit in counseling / coordination of care. Karuna Baker RN APRN.DATA REVIEW SPECIALIST CNOV Observed: 07/31/2018 Status: COMPLETED Source: [place] 2:40 PM [facility] REPOSITORY Office Visit ([facility]) KAROL ASHTON ([id number]) 1955 F [facility] Date Time Provider Department 07/31/18 2:40 PM KARUNA BAKER ([employer] INVESTIGATOR) [facility] During your visit today, we recorded the following information about you: Pulse Blood pressure Weight Height 92/minute 113/77 61.2 kg 1.524 m Karuna Baker RN APRN.VAISHNAVI 07/31/2018 5:31 PM Signed Karol Ashton a 62 year old female who is a consultation requested by Dr. Kelly for an opinion regarding anemia. My final recommendations will be communicated back to the requesting physician by way of shared Medical record. The patient has not been seen previously. The patient denies a family history of colon cancer. She is accompanied by her friend Blossom Kirkpatrick. Component Latest Ref Rng AND Units 01/20/2018 07/18/2018 07/30/2018 WBC 3.70 - 11.00 k/uL 5.24 11.72 (H) 10.76 RBC 3.90 - 5.20 m/uL 4.45 3.78 (L) 3.88 (L) Hemoglobin 11.5 - 15.5 g/dL 13.6 10.9 (L) 11.2 (L) Hematocrit 36.0 - 46.0 % 43.2 35.1 (L) 34.9 (L) MCV 80.0 - 100.0 fL 97.1 92.9 89.9 MCH 26.0 - 34.0 pG 30.6 28.8 28.9 MCHC 30.5 - 36.0 g/dL 31.5 31.1 32.1 RDW-CV 11.5 - 15.0 % 13.4 12.8 14.2 Platelet Count 150 - 400 k/uL 253 478 (H) 354 MPV 9.0 - 12.7 fL 10.7 9.7 9.2 Neut% % 77.6 Abs Neut (ANC) 1.45 - 7.50 k/uL 8.35 (H) Lymph% % 11.8 Abs Lymph 1.00 - 4.00 k/uL 1.27 Lamb% % 8.9 Abs Lamb <0.87 k/uL 0.96 (H) Eosin% % 1.4 Abs Eosin <0.46 k/uL 0.15 Baso% % 0.3 Abs Baso <0.11 k/uL 0.03 Nucleated Reds 0 /100 WBC 0.0 Absolute nRBC <0.01 k/uL <0.01 <0.01 <0.01 Diff Type Auto Diff Component Latest Ref Rng AND Units 07/30/2018 Iron 41 - 186 ug/dL 33 (L) TIBC 232 - 386 ug/dL 286 Transferrin Saturation 15 - 57 % 12 (L) Ferritin 14.7 - 205.1 ng/mL 348.0 (H) Component Latest Ref Rng AND Units 07/18/2018 07/30/2018 Protein, Total 6.3 - 8.0 g/dL 6.8 Albumin 3.9 - 4.9 g/dL 3.6 (L) Calcium 8.5 - 10.2 mg/dL 10.0 9.4 Bilirubin, Total 0.2 - 1.3 mg/dL 0.2 Alkaline Phosphatase 34 - 123 U/L 69 AST 13 - 35 U/L 22 Glucose 74 - 99 mg/dL 94 79 BUN 7 - 21 mg/dL 27 (H) 19 Creatinine 0.58 - 0.96 mg/dL 0.96 0.92 Sodium 136 - 144 mmol/L 136 132 (L) Potassium 3.7 - 5.1 mmol/L 4.6 4.5 Chloride 97 - 105 mmol/L 97 92 (L) CO2 22 - 30 mmol/L 24 27 Anion Gap 9 - 18 mmol/L 15 13 ALT 7 - 38 U/L 12 eGFR- >60 >60 eGFR-All Other Races . 59 >60 Component Latest Ref Rng AND Units 01/20/2018 Occult Blood, Stool Negative Negative Presenting complaint: The patient presents today having been on prednisone and ibuprofen for joint pain. She denies an upset stomach or nasuea. Now using Tylenol. Having a bowel movement every day to every other day. No black stool. No blood. She denies any abdominal pain unless I have to go to the bathroom. The discomfort will resolve after her bowels move. She tells me that her stools are formed. She denies straining. The patient denies nausea or vomiting. She denies heartburn or indigestion. She denies difficulty swallowing food or medications. Blossom tells me that she has noticed that the patient hasn't had the best appetite lately. The patient tells me that she sometimes gets hungry. She lives alone and eats alone. REVIEW OF SYSTEMS: GENERAL: No weight loss, malaise or fevers Last 10 Encounter Wt Readings: Date: Wt: 07/31/2018 61.2 kg (135 lb) 07/30/2018 59.9 kg (132 lb) 07/18/2018 60.3 kg (133 lb) 01/20/2018 58.5 kg (129 lb) 07/16/2017 56.7 kg (125 lb) 11/21/2015 58.5 kg (129 lb) 06/29/2014 63.5 kg (140 lb) 03/01/2014 60.8 kg (134 lb) 02/15/2012 54.4 kg (120 lb) RESPIRATORY: Negative for cough, hemoptysis, wheezing, COPD, dyspnea or shortness of breath CARDIOVASCULAR: Negative for chest pain, leg swelling, hypertension, CHF or palpitations GI: The patient states that her appetite has been adequate. She does not get hungry. There has been no nausea, no vomiting. She denies dysphagia and denies odynophagia. There has not been indigestion or heartburn. There has not been regurgitation. Bowel habits have been regular. There has not been diarrhea. There has not been constipation. The patient denies rectal bleeding. There has not been melena. No abdominal pain. LIFE SCIENTISTS: Negative for abnormal vaginal bleeding, abnormal vaginal discharge. PSYCH: Positive for anxiety or anxiousness. HEMATOLOGY/LYMPHOLOGY Negative for prolonged bleeding, bruising easily or swollen nodes ENDOCRINE: No diabetes. Positive for hypothyroid. NEURO: No history of headaches, syncope, paralysis, seizures or tremors All other reviewed and negative other than HPI. PAST MEDICAL HISTORY Diagnosis Date - Anemia - Bunion left foot - Depression - Mental disability - Thyroid disease PAST SURGICAL HISTORY Procedure Laterality Date - EXTRACTION ERUPTED TOOTH/EXR teenager - PAST SURGICAL HISTORY OF eyes - PAST SURGICAL HISTORY OF back surgery (28 years old) FAMILY HISTORY Problem Relation Age of Onset - Stroke Mother - Hypertension Mother - Cancer Father - Stroke Maternal Grandmother - None Other Current Outpatient Prescriptions: acetaminophen (ARTHRITIS PAIN RELIEVER) 650 mg CR tablet Take 650 mg by mouth every 8 hours as needed. Disp: Rfl: cholecalciferol, vitamin D3, (VITAMIN D-3) 400 unit cap Take 1 capsule by mouth once daily. Disp: Rfl: citalopram (CELEXA) 20 mg tablet Take 1 tablet by mouth once daily. Disp: 30 tablet Rfl: 11 Fish,Saf,Flx,Brg Oils-O3,6,9#2 (OKMM-SCJS-TUGMDF OIL) 896-900-730-50 mg cap Take by mouth once daily. Disp: Rfl: ibuprofen (MOTRIN) 200 mg tablet Take 200 mg by mouth every 6 hours as needed. Disp: Rfl: iron bisgly,ps-FA-B-C#12-succ 65 mg-65 mg -1,000 mcg (24) tab Take by mouth. Disp: Rfl: levothyroxine (SYNTHROID) 75 mcg tablet TAKE 1 TABLET BY MOUTH ONCE DAILY. TAKE ON EMPTY STOMACH. FOR THYROID Disp: 30 tablet Rfl: 11 melatonin 3 mg tablet Take 2 tablets by mouth once daily. Disp: 60 tablet Rfl: 5 multivitamin tablet Take 1 tablet by mouth once daily. Disp: Rfl: 0 No current facility-administered medications for this visit. SOCIAL HISTORY: Patient is single. She has never smoked. She reports her alcohol use as never. She denies recreational drug use. PHYSICAL EXAMINATION: Blood pressure 113/77, pulse 92, height 152.4 cm (5'), weight 61.2 kg (135 lb). General Appearance: Well appearing, alert, in no acute distress, well-hydrated, well nourished. Skin: Skin color, texture, turgor normal, no suspicious rashes or lesions. Head: Normocephalic, no masses, lesions or abnormalities. Eyes: Anicteric sclera. Oropharynx: Lips, mucosa, and tongue normal, oropharynx normal. Teeth in good repair. Neck: Supple, no adenopathy; thyroid symmetric, normal size. Lungs: lungs clear to auscultation. No wheezing, rhonchi, rales. Heart: RRR without murmur. Abdomen: Abdomen soft, non-tender. Bowel sounds normal. No masses, organomegaly. Extremities: No deformities, edema. Peripheral Pulses: Normal. Impression: iron deficiency anemia. Plan: The patient will be scheduled for an upper endoscopy as well as a colonoscopy. She is extremely anxious and will benefit from MAC. Preparation for the procedures, using GoLytely as the laxative, have been explained in detail. The risks, benefits, anticipated outcomes and possible complications were mentioned. I explained the procedure in understandable terms and the patient was given printed material concerning the planned procedure. The patient had the opportunity to ask questions concerning the planned procedure. The patient freely consents to the planned procedure. Blossom Kirkpatrick has requested Dr. Enrique England and the patient agrees. We will facilitate an appointment. I have personally interviewed and examined this patient. I have read the information that the PACKAGING ASSOCIATE documented in this encounter. I spent 25 minutes in the visit, with more than 50% of the total pyjd-xg-vijs time of the visit in counseling / coordination of care. Karuna Baker RN APRN.VAISHNAVI Baker RN APRN.VAISHNAVI 07/31/2018 3:44 PM Signed We will contact Dr. England's office regarding procedures. We will provide you with the Miralax/Dulcolax prep. Referring Provider: ANTHONY KELLY [[id number]] Allergies As of Date: 07/31/2018 (No Known Allergies) Date Reviewed: 07/31/2018 Reviewed by: Ilana Steiner LPN - Fully Assessed Reason for Visit: Anemia [6] Primary Visit Diagnosis:Iron deficiency anemia, unspecified iron deficiency anemia type [D50.9] Order(s):EGD GEN ANES [8124803] Order #: [id number] FUTURE COLONOSCOPY GEN ANES [[id number]] Order #: [id number] FUTURE polyethylene glycol 3350 (MIRALAX, GLYCOLAX) 17 gram/dose powderTake as directed on instruction sheet for colonoscopy.Disp: 238 gRfl: 0 bisacodyl EC (DULCOLAX, BISACODYL,) 5 mg EC tabletTake as explained on the instruction sheet provided.Disp: 4 tabletRfl: 0 Prescriptions as of 07/31/2018 Sig: ACETAMINOPHEN ER 650 MG TABLE* Take 650 mg by mouth every 8 * CHOLECALCIFEROL (VITAMIN D3) * Take 1 capsule by mouth once * CITALOPRAM 20 MG TABLET Take 1 tablet by mouth once d* FISH,SAFFLWR,FLAX,BORAG OILS-* Take by mouth once daily. IBUPROFEN 200 MG TABLET Take 200 mg by mouth every 6 * IRON 65 MG-65 MG-FOLIC ACID 1* Take by mouth. LEVOTHYROXINE 75 MCG TABLET TAKE 1 TABLET BY MOUTH ONCE D* MELATONIN 3 MG TABLET Take 2 tablets by mouth once * MULTIVITAMIN TABLET Take 1 tablet by mouth once d* BISACODYL 5 MG TABLET,DELAYED* Take as explained on the inst* POLYETHYLENE GLYCOL 3350 17 G* Take as directed on instructi* Problem List As Of Date 07/31/2018 Noted Resolved Pain in thoracic spine [M54.6] INVALID FOR* Hypothyroid [E03.9] INVALID FOR* Depression with anxiety [F41.8] INVALID FOR* Bunion of great toe of left foot [M21.612] INVALID FOR* Mental disability [F79] Asymptomatic PVCs [I49.3] INVALID FOR* Other instructions from your clinician: We will contact Dr. England's office regarding procedures. We will provide you with the Miralax/Dulcolax prep. Prescriptions ordered this encounter Disp Refills Start End POLYETHYLENE GLYCOL 3350 17 GRAM/DOS* 238 g 0 07/31/2018 Sig: Take as directed on instruction sheet for colonoscopy. BISACODYL 5 MG TABLET,DELAYED RELEASE 4 ta* 0 07/31/2018 Sig: Take as explained on the instruction sheet provided. Follow-up and Disposition History Recorded Encounter Status:Closed by KARUNA BAKER CNP on 07/31/18 CBC AND DIFFERENTIAL Collected: 07/30/2018 Status: F Source: [place] 1:53 PM [facility] REPOSITORY TYPE CODE TESTS RESULT OUT OF REFERENCE UNITS RANGE LAB WBC 3.70-11.00 k/uL WBC 10.76 LAB RBC 3.90-5.20 m/uL Low RBC 3.88 LAB HGB 11.5-15.5 g/dL Low Hemoglobin 11.2 LAB HCT 36.0-46.0 % Low Hematocrit 34.9 LAB MCV 80.0-100.0 fL MCV 89.9 LAB MCH 26.0-34.0 pG MCH 28.9 LAB MCHC 30.5-36.0 g/dL MCHC 32.1 LAB RDWCV 11.5-15.0 % RDW-CV 14.2 LAB PLTCT 150-400 k/uL Platelet Count 354 LAB MPV 9.0-12.7 fL MPV 9.2 LAB ANEUT % Neut% 77.6 LAB AANEUT 1.45-7.50 k/uL Abs Neut High 8.35 LAB ALYMP % Lymph% 11.8 LAB AALYMP 1.00-4.00 k/uL Abs Lymph 1.27 LAB AMONO % Lamb% 8.9 LAB AAMONO <0.87 k/uL Abs Lamb High 0.96 LAB AEOS % Eosin% 1.4 LAB AAEOS <0.46 k/uL Abs Eosin 0.15 LAB ABASO % Baso% 0.3 LAB AABASO <0.11 k/uL Abs Baso 0.03 LAB AUNRBC 0 /100 WBC NRBCs 0.0 LAB ABNRBC <0.01 k/uL Absolute nRBC <0.01 LAB DTYP DTYPE Auto Diff Performed By: #### CBCDIF, RETIC, IRON, URIC, BMP, FERR, FT4, TSH #### [facility] [address], [place] [address] RETICULOCYTE Collected: 07/30/2018 Status: F Source: [place] 1:53 PM [facility] REPOSITORY TYPE CODE TESTS RESULT OUT OF REFERENCE UNITS RANGE LAB RETC 0.4-2.0 % Retic% 1.5 LAB ABRET 0.0180-0.1000 M/uL Abs Retic 0.060 Performed By: #### CBCDIF, RETIC, IRON, URIC, BMP, FERR, FT4, TSH #### [facility] [address] [address] IRON AND TIBC Collected: 07/30/2018 Status: F Source: [place] 1:53 PM [facility] REPOSITORY TYPE CODE TESTS RESULT OUT OF REFERENCE UNITS RANGE LAB IRN 41-186 ug/dL Low Iron 33 LAB TIBC 232-386 ug/dL TIBC 286 LAB SAT 15-57 % Low Transferrin Saturatn 12 Performed By: #### CBCDIF, RETIC, IRON, URIC, BMP, FERR, FT4, TSH #### [address] [address] [address] URIC ACID Collected: 07/30/2018 Status: F Source: [place] 1:53 PM [facility] REPOSITORY TYPE CODE TESTS RESULT OUT OF RANGE REFERENCE UNITS LAB URIC 2.5-6.6 mg/dL Uric Acid 3.7 Performed By: #### CBCDIF, RETIC, IRON, URIC, BMP, FERR, FT4, TSH #### [place] [address] BASIC METABOLIC PANL Collected: 07/30/2018 Status: F Source: [place] 1:53 [facility] REPOSITORY TYPE CODE TESTS RESULT OUT OF REFERENCE UNITS RANGE LAB GLU 74-99 mg/dL Glucose 79 Result Comment: The [place] [employer] (ADA) provides guidance for cutoff values for fasting glucose and random glucose. The ADA defines fasting as no caloric intake for at least 8 hours. Fas ting plasma glucose results between 100 to 125 mg/dL indicate increased risk for diabetes (prediabetes). Fasting plasma glucose results greater than or equal to 126 mg/dL meet the criteria for diagnosis of diabetes. In the absence of unequivocal hyperglycemia, results should be confirmed by repeat testing. In a patient with classic symptoms of hyperglycemia or hyperglycemic crisis, random plasma glucose results greater than or equal to 200 mg/dL meet the criteria for diagnosis of diabetes. Reference: Standards of Medical Care in Diabetes 2016, [place] [employer]. Diabetes Care. 2016.39(Suppl 1). LAB BUN 7-21 mg/dL BUN 19 LAB CRET 0.58-0.96 mg/dL Creatinine 0.92 LAB NA 136-144 mmol/L Sodium Low 132 LAB K 3.7-5.1 mmol/L Potassium 4.5 LAB CL 97-105 mmol/L Chloride Low 92 LAB CO2 22-30 mmol/L CO2 27 LAB AGAP 9-18 mmol/L Anion Gap 13 LAB CA 8.5-10.2 mg/dL Calcium, Total 9.4 LAB GFRAA eGFR- Amer. >60 LAB GFRNAA . eGFR-All Other Races >60 Result Comment: eGFR (Estimated GFR) Units of measure: mL/min/1.73 meters squared eGFR is derived from the reexpressed MDRD Study equation using the following parameters: serum creatinine, age, gender and race. The creatinine assay has been calibrated to be traceable to IDMS. An eGFR <60 mL/min/1.73m2 for >3 months is consistent with chronic kidney disease. Refer to KDOQI guidelines for clinical interpretation. In patients with unstable renal function, e.g. those with acute kidney injury, the eGFR may not accurately reflect actual GFR. Performed By: #### CBCDIF, RETIC, IRON, URIC, BMP, FERR, FT4, TSH #### [facility] [address] [address] FERRITIN Collected: 07/30/2018 Status: F Source: [place] 1:53 PM [facility] REPOSITORY TYPE CODE TESTS RESULT OUT OF REFERENCE UNITS RANGE LAB FERR 14.7-205.1 ng/mL High Ferritin 348.0 Performed By: #### CBCDIF, RETIC, IRON, URIC, BMP, FERR, FT4, TSH #### [facility] [address] [address] FREE T4 Collected: 07/30/2018 Status: F Source: [place] 1:53 PM [facility] REPOSITORY TYPE CODE TESTS RESULT OUT OF RANGE REFERENCE UNITS LAB FT4 0.9-1.7 ng/dL Free T4 1.2 Performed By: #### CBCDIF, RETIC, IRON, URIC, BMP, FERR, FT4, TSH #### [facility] [address] [place], [place] [address] TSH Collected: 07/30/2018 Status: F Source: [place] 1:53 PM [facility] REPOSITORY TYPE CODE TESTS RESULT OUT OF RANGE REFERENCE UNITS LAB TSH 0.400-5.500 uU/mL High TSH 24.850 Performed By: #### CBCDIF, RETIC, IRON, URIC, BMP, FERR, FT4, TSH #### [facility] [address] [place], [place] [address] PROGRESS Observed: 07/30/2018 Status: COMPLETED Source: [place] 12:55 PM [facility] REPOSITORY HNO ID: [id number] Author: Anthony Kelly Service: (none) Author Type: Physician Type: Progress Notes Filed: 08/24/2018 8:49 PM Note Text: Patient presents with: review labs SUBJECTIVE: Karol Ashton is a 62 year old year old lady here today for follow up appointment for review of medical conditions and review labs and recommendations. Was taking thyroid med with food to avoid missing meals. Was also taking MVI close to time taking the thyroid med. No prior endoscopy. Swelling in left hand (dorsum of hand to wrist) improved with prednisone. Also left foot swollen, worse in bunion. 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 Has had sharp pains that would make her jump. Not sure if from her foot. PAST MEDICAL HISTORY Diagnosis Date - Anemia - Bunion left foot - Depression - Mental disability - Thyroid disease Current Outpatient Prescriptions: acetaminophen (ARTHRITIS PAIN RELIEVER) 650 mg CR tablet Take 650 mg by mouth every 8 hours as needed. cholecalciferol, vitamin D3, (VITAMIN D-3) 400 unit cap Take 1 capsule by mouth once daily. citalopram (CELEXA) 20 mg tablet Take 1 tablet by mouth once daily. Fish,Saf,Flx,Brg Oils-O3,6,9#2 (VMOA-DJEM-DZCZMX OIL) [phone] mg cap Take by mouth once daily. ibuprofen (MOTRIN) 200 mg tablet Take 200 mg by mouth every 6 hours as needed. levothyroxine (SYNTHROID) 75 mcg tablet TAKE 1 TABLET BY MOUTH ONCE DAILY. TAKE ON EMPTY STOMACH. FOR THYROID melatonin 3 mg tablet Take 2 tablets by mouth once daily. multivitamin tablet Take 1 tablet by mouth once daily. No current facility-administered medications for this visit. OBJECTIVE: BP 104/58 (BP Site: Left Arm, BP Position: Sitting, BP Cuff Size: Regular Adult) Pulse 104 Temp 37.1 ?C (98.7 ?F) (Left Tympanic) Resp 20 Wt 59.9 kg (132 lb) SpO2 95% BMI 27.12 kg/m? Patient is alert, oriented times 3, no apparent distress, affect is anxious but reactive. Heart: Regular rate, rhythm, no murmurs, gallops, rubs. Lungs: Clear to auscultation, bilaterally, breathing non labored. Ext: No cyanosis, clubbing, or edema. Bunion noted. No signs of acute gout. Component Latest Ref Rng AND Units 03/25/2014 11/18/2015 04/15/2017 01/20/2018 07/18/2018 Protein, Total 6.3 - 8.0 g/dL 7.1 6.8 Albumin 3.9 - 4.9 g/dL 4.6 3.6 (L) Calcium 8.5 - 10.2 mg/dL 8.9 9.3 10.0 Bilirubin, Total 0.2 - 1.3 mg/dL 0.4 0.2 Alkaline Phosphatase 34 - 123 U/L 59 69 AST 13 - 35 U/L 26 22 Glucose 74 - 99 mg/dL 79 73 (L) 94 BUN 7 - 21 mg/dL 24 26 (H) 27 (H) Creatinine 0.58 - 0.96 mg/dL 1.05 1.12 (H) 0.96 Sodium 136 - 144 mmol/L 141 139 136 Potassium 3.7 - 5.1 mmol/L 4.1 4.1 4.6 Chloride 97 - 105 mmol/L 103 100 97 CO2 22 - 30 mmol/L 28 29 24 Anion Gap 9 - 18 mmol/L 10 10 15 ALT 7 - 38 U/L 18 12 eGFR- >60 60 >60 eGFR-All Other Races . 54 49 59 WBC 3.70 - 11.00 k/uL 5.24 11.72 (H) RBC 3.90 - 5.20 m/uL 4.45 3.78 (L) Hemoglobin 11.5 - 15.5 g/dL 13.6 10.9 (L) Hematocrit 36.0 - 46.0 % 43.2 35.1 (L) MCV 80.0 - 100.0 fL 97.1 92.9 MCH 26.0 - 34.0 pG 30.6 28.8 MCHC 30.5 - 36.0 g/dL 31.5 31.1 RDW-CV 11.5 - 15.0 % 13.4 12.8 Platelet Count 150 - 400 k/uL 253 478 (H) MPV 9.0 - 12.7 fL 10.7 9.7 Absolute nRBC <0.01 k/uL <0.01 <0.01 TSH 0.400 - 5.500 uU/mL 4.440 0.332 (L) 1.040 4.720 18.260 (H) Free T4 0.9 - 1.7 ng/dL 1.7 1.5 Free T3 2.3 - 4.1 pg/mL 2.8 Component Latest Ref Rng AND Units 07/18/2018 Uric Acid 2.5 - 6.6 mg/dL 2.8 ASSESSMENT AND PLAN: Encounter Diagnosis ICD-10-CM 1. Anemia, unspecified type D64.9 CBC FERRITIN BLD IRON + TIBC RETIC COUNT CONSULT TO GASTROENTEROLOGY 2. Acquired hypothyroidism E03.9 T4 FREE/FREE THYROX 3. Hypoalbuminemia E88.09 4. Acute arthritis M19.90 URIC ACID BLOOD Reassurance to patient and caregiver present that I had discussed plans with my nurse practitioner, Ban Rodarte, about needing further evaluation for anemia and need for endoscopy. Further evaluation and treatment as indicated for anemia, etc. Will adjust thyroid replacement since TSH still high and has symptoms of hypothyroidism. Further evaluation and treatment as indicated. Discussed need to get adequate protein in diet given low albumin level. Also discussed episode acute arthritis and rule out gout. Further evaluation and treatment as indicated. Above issues addressed with patient. Patient involved in shared decision making for management of medical issues. History and medications reviewed. Epic updated as needed Refills taken care of and meds adjusted as indicated after reviewed history, exam and labs. Health Maintenance reviewed. Updated record and/or ordered tests as recorded. Encouraged on efforts at healthy diet and regular exercise and adequate sleep. The majority of the visit was spent counseling and/or coordinating care for the patient. Kjbe-rq-lpls time was at least 35 minutes. Anthony Kelly MD CNOV Observed: 07/30/2018 Status: COMPLETED Source: [place] 12:40 PM [facility] REPOSITORY Office Visit (INTMWS) KAROL ASHTON ([id number]) 1955 F T Date Time Provider Department 07/30/18 12:40 PM ANTHONY KELLY INTMWS During your visit today, we recorded the following information about you: Temperature Pulse Respiration Blood pressure 98.7 degrees 104/minute 20/minute 104/58 Weight 59.9 kg Anthony Kelly MD 08/24/2018 8:49 PM Signed Patient presents with: review labs SUBJECTIVE: Karol Felix Ashton is a 62 year old year old lady here today for follow up appointment for review of medical conditions and review labs and recommendations. Was taking thyroid med with food to avoid missing meals. Was also taking MVI close to time taking the thyroid med. No prior endoscopy. Swelling in left hand (dorsum of hand to wrist) improved with prednisone. Also left foot swollen, worse in bunion. 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 Has had sharp pains that would make her jump. Not sure if from her foot. PAST MEDICAL HISTORY Diagnosis Date - Anemia - Bunion left foot - Depression - Mental disability - Thyroid disease Current Outpatient Prescriptions: acetaminophen (ARTHRITIS PAIN RELIEVER) 650 mg CR tablet Take 650 mg by mouth every 8 hours as needed. cholecalciferol, vitamin D3, (VITAMIN D-3) 400 unit cap Take 1 capsule by mouth once daily. citalopram (CELEXA) 20 mg tablet Take 1 tablet by mouth once daily. Fish,Saf,Flx,Brg Oils-O3,6,9#2 (QMBP-ZDQN-EGFEBG OIL) [phone] mg cap Take by mouth once daily. ibuprofen (MOTRIN) 200 mg tablet Take 200 mg by mouth every 6 hours as needed. levothyroxine (SYNTHROID) 75 mcg tablet TAKE 1 TABLET BY MOUTH ONCE DAILY. TAKE ON EMPTY STOMACH. FOR THYROID melatonin 3 mg tablet Take 2 tablets by mouth once daily. multivitamin tablet Take 1 tablet by mouth once daily. No current facility-administered medications for this visit. OBJECTIVE: BP 104/58 (BP Site: Left Arm, BP Position: Sitting, BP Cuff Size: Regular Adult) Pulse 104 Temp 37.1 ?C (98.7 ?F) (Left Tympanic) Resp 20 Wt 59.9 kg (132 lb) SpO2 95% BMI 27.12 kg/m? Patient is alert, oriented times 3, no apparent distress, affect is anxious but reactive. Heart: Regular rate, rhythm, no murmurs, gallops, rubs. Lungs: Clear to auscultation, bilaterally, breathing non labored. Ext: No cyanosis, clubbing, or edema. Bunion noted. No signs of acute gout. Component Latest Ref Rng AND Units 03/25/2014 11/18/2015 04/15/2017 01/20/2018 07/18/2018 Protein, Total 6.3 - 8.0 g/dL 7.1 6.8 Albumin 3.9 - 4.9 g/dL 4.6 3.6 (L) Calcium 8.5 - 10.2 mg/dL 8.9 9.3 10.0 Bilirubin, Total 0.2 - 1.3 mg/dL 0.4 0.2 Alkaline Phosphatase 34 - 123 U/L 59 69 AST 13 - 35 U/L 26 22 Glucose 74 - 99 mg/dL 79 73 (L) 94 BUN 7 - 21 mg/dL 24 26 (H) 27 (H) Creatinine 0.58 - 0.96 mg/dL 1.05 1.12 (H) 0.96 Sodium 136 - 144 mmol/L 141 139 136 Potassium 3.7 - 5.1 mmol/L 4.1 4.1 4.6 Chloride 97 - 105 mmol/L 103 100 97 CO2 22 - 30 mmol/L 28 29 24 Anion Gap 9 - 18 mmol/L 10 10 15 ALT 7 - 38 U/L 18 12 eGFR- >60 60 >60 eGFR-All Other Races . 54 49 59 WBC 3.70 - 11.00 k/uL 5.24 11.72 (H) RBC 3.90 - 5.20 m/uL 4.45 3.78 (L) Hemoglobin 11.5 - 15.5 g/dL 13.6 10.9 (L) Hematocrit 36.0 - 46.0 % 43.2 35.1 (L) MCV 80.0 - 100.0 fL 97.1 92.9 MCH 26.0 - 34.0 pG 30.6 28.8 MCHC 30.5 - 36.0 g/dL 31.5 31.1 RDW-CV 11.5 - 15.0 % 13.4 12.8 Platelet Count 150 - 400 k/uL 253 478 (H) MPV 9.0 - 12.7 fL 10.7 9.7 Absolute nRBC <0.01 k/uL <0.01 <0.01 TSH 0.400 - 5.500 uU/mL 4.440 0.332 (L) 1.040 4.720 18.260 (H) Free T4 0.9 - 1.7 ng/dL 1.7 1.5 Free T3 2.3 - 4.1 pg/mL 2.8 Component Latest Ref Rng AND Units 07/18/2018 Uric Acid 2.5 - 6.6 mg/dL 2.8 ASSESSMENT AND PLAN: Encounter Diagnosis ICD-10-CM 1. Anemia, unspecified type D64.9 CBC FERRITIN BLD IRON + TIBC RETIC COUNT CONSULT TO GASTROENTEROLOGY 2. Acquired hypothyroidism E03.9 T4 FREE/FREE THYROX 3. Hypoalbuminemia E88.09 4. Acute arthritis M19.90 URIC ACID BLOOD Reassurance to patient and caregiver present that I had discussed plans with my nurse practitioner, Ban Rodarte, about needing further evaluation for anemia and need for endoscopy. Further evaluation and treatment as indicated for anemia, etc. Will adjust thyroid replacement since TSH still high and has symptoms of hypothyroidism. Further evaluation and treatment as indicated. Discussed need to get adequate protein in diet given low albumin level. Also discussed episode acute arthritis and rule out gout. Further evaluation and treatment as indicated. Above issues addressed with patient. Patient involved in shared decision making for management of medical issues. History and medications reviewed. Epic updated as needed Refills taken care of and meds adjusted as indicated after reviewed history, exam and labs. Health Maintenance reviewed. Updated record and/or ordered tests as recorded. Encouraged on efforts at healthy diet and regular exercise and adequate sleep. The majority of the visit was spent counseling and/or coordinating care for the patient. Wmhj-mz-llpl time was at least 35 minutes. MD Anthony Padilla MD 07/30/2018 1:27 PM Signed Need to get more protein every day. Could try adding whey protein to food. Think of adding to things like smoothies. Keep taking thyroid pill separate from breakfast but okay if no waiting an hour. Referring Provider: ANTHONY KELLY [[id number]] Allergies As of Date: 07/30/2018 (No Known Allergies) Date Reviewed: 07/30/2018 Reviewed by: Blake Tinajero - Fully Assessed Reason for Visit: review labs [Other] Primary Visit Diagnosis:Anemia, unspecified type [D64.9] Other Visit Diagnoses:Acquired hypothyroidism [E03.9] Hypoalbuminemia [E88.09] Acute arthritis [M19.90] Order(s):URIC ACID BLOOD [SQURIC] Order #: [id number] FUTURE CBC [SQCBC] Order #: [id number] FUTURE FERRITIN BLD [SQFERR] Order #: [id number] FUTURE IRON + TIBC [SQIRON] Order #: [id number] FUTURE RETIC COUNT [SQRETIC] Order #: [id number] FUTURE T4 FREE/FREE THYROX [SQFT4] Order #: [id number] FUTURE CONSULT TO GASTROENTEROLOGY [9010] Order #: [id number]: 1 Prescriptions as of 07/30/2018 Sig: IBUPROFEN 200 MG TABLET Take 200 mg by mouth every 6 * ACETAMINOPHEN ER 650 MG TABLE* Take 650 mg by mouth every 8 * X LEVOTHYROXINE 75 MCG TABLET TAKE 1 TABLET BY MOUTH ONCE D* MELATONIN 3 MG TABLET Take 2 tablets by mouth once * CITALOPRAM 20 MG TABLET Take 1 tablet by mouth once d* CHOLECALCIFEROL (VITAMIN D3) * Take 1 capsule by mouth once * FISH,SAFFLWR,FLAX,BORAG OILS-* Take by mouth once daily. MULTIVITAMIN TABLET Take 1 tablet by mouth once d* IRON 65 MG-65 MG-FOLIC ACID 1* Take by mouth. Problem List As Of Date 07/30/2018 Noted Resolved Pain in thoracic spine [M54.6] INVALID FOR* Hypothyroid [E03.9] INVALID FOR* Depression with anxiety [F41.8] INVALID FOR* Bunion of great toe of left foot [M21.612] INVALID FOR* Mental disability [F79] Asymptomatic PVCs [I49.3] INVALID FOR* Other instructions from your clinician: Need to get more protein every day. Could try adding whey protein to food. Think of adding to things like smoothies. Keep taking thyroid pill separate from breakfast but okay if no waiting an hour. Medications Discontinued During This Encounter predniSONE (DELTASONE) 10 mg tablet 21 t* 0 07/18/2018 07/30/2018 Sig: Take 40 mg x 3 days, 20 mg x 3 days, 10 mg x 3 days. Take with food, once daily in the morning Disc: Course of therapy completed Encounter Status:Closed by ANTHONY KELLY MD on 08/24/18 CARMEN Observed: 07/21/2018 Status: COMPLETED Source: [place] 12:00 AM [facility] REPOSITORY Telephone (INTMWS) KAROL ASHTON ([id number]) 1955 F [facility] Date Time Provider Department 07/21/18 BAN RODARTE (MAILE) INTMWS During your visit today, we recorded the following information about you: Ban Rodarte APRN.MAILE 07/21/2018 12:17 PM Addendum Lab test shows elevated TSH. Please verify that she is taking levothyroxine 75 ?g as ordered, inquire if missing doses. If she has been taking daily wi need to increase her dose of levothyroxine and recheck labs in 6-12 weeks. Ask which pharmacy she would like prescription to go to. Labs show a low albumin level, please verify eating normally, protein at every meal such as fish chicken beef pork nuts etc. If not this is encouraged WSR and CRP -Inflammatory markers are elevated. Will discuss how she is doing and need for recheck at her next visit. Uric acid was normal, may need to recheck when she's feeling improved to check for gout Finally blood testing shows anemia. Recommend she complete fecal occult blood test and make an appointment with gastroenterology for further evaluation, possible EGD/colonoscopy. Please assist with scheduling appt with gastroenterology. Component Latest Ref Rng AND Units 01/20/2018 07/18/2018 Protein, Total 6.3 - 8.0 g/dL 7.1 6.8 Albumin 3.9 - 4.9 g/dL 4.6 3.6 (L) Calcium 8.5 - 10.2 mg/dL 9.3 10.0 Bilirubin, Total 0.2 - 1.3 mg/dL 0.4 0.2 Alkaline Phosphatase 34 - 123 U/L 59 69 AST 13 - 35 U/L 26 22 Glucose 74 - 99 mg/dL 73 (L) 94 BUN 7 - 21 mg/dL 26 (H) 27 (H) Creatinine 0.58 - 0.96 mg/dL 1.12 (H) 0.96 Sodium 136 - 144 mmol/L 139 136 Potassium 3.7 - 5.1 mmol/L 4.1 4.6 Chloride 97 - 105 mmol/L 100 97 CO2 22 - 30 mmol/L 29 24 Anion Gap 9 - 18 mmol/L 10 15 ALT 7 - 38 U/L 18 12 eGFR- 60 >60 eGFR-All Other Races . 49 59 WBC 3.70 - 11.00 k/uL 5.24 11.72 (H) RBC 3.90 - 5.20 m/uL 4.45 3.78 (L) Hemoglobin 11.5 - 15.5 g/dL 13.6 10.9 (L) Hematocrit 36.0 - 46.0 % 43.2 35.1 (L) MCV 80.0 - 100.0 fL 97.1 92.9 MCH 26.0 - 34.0 pG 30.6 28.8 MCHC 30.5 - 36.0 g/dL 31.5 31.1 RDW-CV 11.5 - 15.0 % 13.4 12.8 Platelet Count 150 - 400 k/uL 253 478 (H) MPV 9.0 - 12.7 fL 10.7 9.7 Absolute nRBC <0.01 k/uL <0.01 <0.01 Cholesterol, Total <200 mg/dL 225 (H) Triglyceride <150 mg/dL 73 HDL Cholesterol >39 mg/dL 62 LDL Cholesterol <100 mg/dL 148 (H) Non HDL Cholesterol <130 mg/dL 163 (H) Fasting Time hrs 16 VLDL Cholesterol <30 mg/dL 15 TC:HDL Ratio <5.10 3.63 LDL:HDL Ratio <2.54 2.39 TSH 0.400 - 5.500 uU/mL 4.720 18.260 (H) Free T4 0.9 - 1.7 ng/dL 1.5 Free T3 2.3 - 4.1 pg/mL 2.8 WSR 0 - 20 mm/hr 46 (H) CRP <0.9 mg/dL 7.0 (H) Uric Acid 2.5 - 6.6 mg/dL 2.8 Aileen Antonio LPN 07/21/2018 2:25 PM Signed No answer. Left message for patient to call office and ask to speak with a nurse regarding lab results. Lida Alcocer LPN 07/22/2018 9:03 AM Signed Patient returned call and went over results, notes from Ban Rodarte [employer] IN[employer]IGATOR had to explain things several times to her. Patient has been taking her levothyroxine and eating right after it, she said that is what Dr Kelly told her to do. Patient uses [facility] for her pharmacy. Explained need to take Levothyroxine, alone by itself with nothing else at least 30 minutes before breakfast. Patient said she does eat chicken patties sometimes, not sure if she is eating meats or not. Did not give me complete answers. Patient has transportation issues has friend that takes her to app, out of town right now. will have to set up Gastro appt when friend is available. Ban Rodarte APRN.MAILE 07/22/2018 12:02 PM Addendum Can address issues further when she returns to clinic this week. Allergies As of Date: 07/21/2018 (No Known Allergies) Date Reviewed: 07/18/2018 Reviewed by: Aileen Antonio LPN - Fully Assessed Reason for Visit: Results [95] Primary Visit Diagnosis:Acquired hypothyroidism [E03.9] Other Visit Diagnoses:Anemia, unspecified type [D64.9] Abnormal albumin [R77.0] Order(s):FECAL OCCULT BLOOD TEST [SQIFOBT] Order #: [id number] FUTURE CONSULT TO GASTROENTEROLOGY [9010] Order #: [id number]: 1 TSH BLD [SQTSH] Order #: [id number] FUTURE BASIC METABOLIC PNL [SQBMP] Order #: [id number] FUTURE CBC + DIFF [SQCBCDIF] Order #: [id number] FUTURE Prescriptions as of 07/21/2018 Sig: ACETAMINOPHEN ER 650 MG TABLE* Take 650 mg by mouth every 8 * CHOLECALCIFEROL (VITAMIN D3) * Take 1 capsule by mouth once * CITALOPRAM 20 MG TABLET Take 1 tablet by mouth once d* FISH,SAFFLWR,FLAX,BORAG OILS-* Take by mouth once daily. IBUPROFEN 200 MG TABLET Take 200 mg by mouth every 6 * LEVOTHYROXINE 75 MCG TABLET TAKE 1 TABLET BY MOUTH ONCE D* MELATONIN 3 MG TABLET Take 2 tablets by mouth once * MULTIVITAMIN TABLET Take 1 tablet by mouth once d* PREDNISONE 10 MG TABLET Take 40 mg x 3 days, 20 mg x * Problem List As Of Date 07/21/2018 Noted Resolved Pain in thoracic spine [M54.6] INVALID FOR* Hypothyroid [E03.9] INVALID FOR* Depression with anxiety [F41.8] INVALID FOR* Bunion of great toe of left foot [M21.612] INVALID FOR* Mental disability [F79] Asymptomatic PVCs [I49.3] INVALID FOR* Encounter Status:Closed by BAN GARCIA on 07/22/18 CBC Collected: 07/18/2018 Status: F Source: [place] 10:38 AM [facility] REPOSITORY TYPE CODE TESTS RESULT OUT OF REFERENCE UNITS RANGE LAB WBC 3.70-11.00 k/uL WBC High 11.72 LAB RBC 3.90-5.20 m/uL Low RBC 3.78 LAB HGB 11.5-15.5 g/dL Low Hemoglobin 10.9 LAB HCT 36.0-46.0 % Low Hematocrit 35.1 LAB MCV 80.0-100.0 fL MCV 92.9 LAB MCH 26.0-34.0 pG MCH 28.8 LAB MCHC 30.5-36.0 g/dL MCHC 31.1 LAB RDWCV 11.5-15.0 % RDW-CV 12.8 LAB PLTCT 150-400 k/uL Platelet High Count 478 LAB MPV 9.0-12.7 fL MPV 9.7 LAB ABSNUC <0.01 k/uL Absolute nRBC <0.01 Performed By: #### CBC, WSR, CMP, CRP, URIC, TSH, ANAIFS, ANABLL #### [facility] [address] [place], [place] [address] SED RATE WESTERGREN Collected: 07/18/2018 Status: F Source: [place] 10:38 AM [facility] REPOSITORY TYPE CODE TESTS RESULT OUT OF REFERENCE UNITS RANGE LAB WSR 0-20 mm/hr Sed Rate High Westergren 46 Performed By: #### CBC, WSR, CMP, CRP, URIC, TSH, ANAIFS, ANABLL #### [facility] [address] [place], [place] [address] COMP METABOLIC PANEL Collected: 07/18/2018 Status: F Source: [place] 10:38 [facility] REPOSITORY TYPE CODE TESTS RESULT OUT OF REFERENCE UNITS RANGE LAB TP 6.3-8.0 g/dL Protein, Total 6.8 LAB ALB 3.9-4.9 g/dL Low Albumin 3.6 LAB CA 8.5-10.2 mg/dL Calcium, Total 10.0 LAB TBIL 0.2-1.3 mg/dL Bilirubin, Total 0.2 LAB ALKP 34-123 U/L Alkaline Phosphatase 69 LAB AST 13-35 U/L AST 22 LAB GLU 74-99 mg/dL Glucose 94 Result Comment: The [place] [employer] (ADA) provides guidance for cutoff values for fasting glucose and random glucose. The ADA defines fasting as no caloric intake for at least 8 hours. Fas ting plasma glucose results between 100 to 125 mg/dL indicate increased risk for diabetes (prediabetes). Fasting plasma glucose results greater than or equal to 126 mg/dL meet the criteria for diagnosis of diabetes. In the absence of unequivocal hyperglycemia, results should be confirmed by repeat testing. In a patient with classic symptoms of hyperglycemia or hyperglycemic crisis, random plasma glucose results greater than or equal to 200 mg/dL meet the criteria for diagnosis of diabetes. Reference: Standards of Medical Care in Diabetes 2016, [place] [employer]. Diabetes Care. 2016.39(Suppl 1). LAB BUN 7-21 mg/dL BUN High 27 LAB CRET 0.58-0.96 mg/dL Creatinine 0.96 LAB NA 136-144 mmol/L Sodium 136 LAB K 3.7-5.1 mmol/L Potassium 4.6 LAB CL 97-105 mmol/L Chloride 97 LAB CO2 22-30 mmol/L CO2 24 LAB AGAP 9-18 mmol/L Anion Gap 15 LAB ALT 7-38 U/L ALT 12 LAB GFRAA eGFR- Amer. >60 LAB GFRNAA . eGFR-All Other Races 59 Result Comment: eGFR (Estimated GFR) Units of measure: mL/min/1.73 meters squared eGFR is derived from the reexpressed MDRD Study equation using the following parameters: serum creatinine, age, gender and race. The creatinine assay has been calibrated to be traceable to IDMS. An eGFR <60 mL/min/1.73m2 for >3 months is consistent with chronic kidney disease. Refer to KDOQI guidelines for clinical interpretation. In patients with unstable renal function, e.g. those with acute kidney injury, the eGFR may not accurately reflect actual GFR. Performed By: #### CBC, WSR, CMP, CRP, URIC, TSH, ANAIFS, ANABLL #### [facility] [address] [address] C-REACTIVE PROTEIN Collected: 07/18/2018 Status: F Source: [place] 10:38 AM [facility] REPOSITORY TYPE CODE TESTS RESULT OUT OF REFERENCE UNITS RANGE LAB CRP <0.9 mg/dL High C-Reactive 7.0 Protein Performed By: #### CBC, WSR, CMP, CRP, URIC, TSH, ANAIFS, ANABLL #### [facility] [address] [address] URIC ACID Collected: 07/18/2018 Status: F Source: [place] 10:38 AM [facility] REPOSITORY TYPE CODE TESTS RESULT OUT OF RANGE REFERENCE UNITS LAB URIC 2.5-6.6 mg/dL Uric Acid 2.8 Performed By: #### CBC, WSR, CMP, CRP, URIC, TSH, ANAIFS, ANABLL #### [facility] [address] [id number] TSH Collected: 07/18/2018 Status: F Source: [place] 10:38 AM [facility] REPOSITORY TYPE CODE TESTS RESULT OUT OF RANGE REFERENCE UNITS LAB TSH 0.400-5.500 uU/mL High TSH 18.260 Performed By: #### CBC, WSR, CMP, CRP, URIC, TSH, ANAIFS, ANABLL #### [facility] [address] [address] TAD BY IFA Collected: 07/18/2018 Status: F Source: [place] 10:38 AM [facility] REPOSITORY TYPE CODE TESTS RESULT OUT OF RANGE REFERENCE UNITS LAB ANASC Negative Abnormal Alert TAD Positive Result Comment: Normal range : negative at <1:80 serum dilution. LAB VELASQUEZ Negative Abnormal 1:160 Alert TAD Titer LAB ANAP TAD Pattern Atypical speckled Performed By: #### CBC, WSR, CMP, CRP, URIC, TSH, ANAIFS, ANABLL #### [facility] [address] [id number] TAD IFA TITER BILL Collected: 07/18/2018 Status: F Source: [place] 10:38 AM [facility] REPOSITORY TYPE CODE TESTS RESULT OUT OF REFERENCE UNITS RANGE LAB ANABLL TAD Billed for IFA Titer services Bill performed Performed By: #### CBC, WSR, CMP, CRP, URIC, TSH, ANAIFS, ANABLL #### [address] [place] [address] PROGRESS Observed: 07/18/2018 Status: COMPLETED Source: [place] 10:09 AM [facility] REPOSITORY HNO ID: [id number] Author: Ban (Turf Grower) Cayden Service: (none) Author Type: Nurse Specialist Type: Progress Notes Filed: 07/18/2018 10:15 AM Note Text: OUTPATIENT VISIT DATE July 18, 2018 OUTPATIENT VISIT TYPE ESTABLISHED PRIMARY CARE PHYSICIAN: Anthony Kelly MD CHIEF COMPLAINT: Patient presents with: Edema: hands, feet Pain: Knee, hands, feet History of Present Illness: Karol Ashton is a 62 year old female who was last seen 01/2018 by Anthony Kelly MD She has been seen in the past for ACTIVE PROBLEM LIST Pain in Thoracic Spine Hypothyroid Depression With Anxiety Bunion of Great Toe of Left Foot Mental Disability Asymptomatic Pvcs Presents with significant other who helps provide history. She noted shoulder pain after overexerting a week or 2 ago. This has resolved. Then noted knee pain about a week later. Was putting up Samuel lights. This has resolved. 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 Also has pain redness and swelling of the left great toe. No recent illness. No fevers. No injury is known. No prior occurrence. Pain and discomfort greater than 1 week both areas. Reports right foot was painful and swollen yesterday. No known history of arthritis or gout. No recent hospital or ED visits. No new medical problems or medications. Able to obtain medications. No problems with taking medications or note side effects. PAST MEDICAL HISTORY Diagnosis Date - Anemia - Bunion left foot - Depression - Mental disability - Thyroid disease PAST SURGICAL HISTORY Procedure Laterality Date - EXTRACTION ERUPTED TOOTH/EXR teenager - PAST SURGICAL HISTORY OF eyes - PAST SURGICAL HISTORY OF back surgery (28 years old) FAMILY HISTORY Problem Relation Age of Onset - None Unknown - Stroke Mother - Hypertension Mother - Cancer Father - Stroke Maternal Grandmother Social History Substance Use Topics - Smoking status: Never Smoker - Smokeless tobacco: Never Used - Alcohol use No ALLERGIES: ALLERGIES No Known Allergies MEDICATIONS acetaminophen (ARTHRITIS PAIN RELIEVER) 650 mg CR tablet Take 650 mg by mouth every 8 hours as needed. cholecalciferol, vitamin D3, (VITAMIN D-3) 400 unit cap Take 1 capsule by mouth once daily. citalopram (CELEXA) 20 mg tablet Take 1 tablet by mouth once daily. Fish,Saf,Flx,Brg Oils-O3,6,9#2 (BIKA-WXLU-HLTWYX OIL) [phone] mg cap Take by mouth once daily. ibuprofen (MOTRIN) 200 mg tablet Take 200 mg by mouth every 6 hours as needed. levothyroxine (SYNTHROID) 75 mcg tablet TAKE 1 TABLET BY MOUTH ONCE DAILY. TAKE ON EMPTY STOMACH. FOR THYROID melatonin 3 mg tablet Take 2 tablets by mouth once daily. multivitamin tablet Take 1 tablet by mouth once daily. predniSONE (DELTASONE) 10 mg tablet Take 40 mg x 3 days, 20 mg x 3 days, 10 mg x 3 days. Take with food, once daily in the morning REVIEW OF SYSTEMS: GENERAL: Negative for: Weight loss or gain, Fever or Chills, Weakness and Sleep difficulties. Physical Examination: BP 114/78 Pulse 52 Resp 16 Wt 133 lb (60.3kg) BP w/Orthostatic Vitals Date and Time Orthostatic BP Orthostatic Pulse BP Pulse BP Position BP Site BP Cuff Size 07/18/18925 -- -- 114/78 (!) 52 Sitting Left Arm Regular Adult Peak Flow Date and Time PF Resp 07/18/18925 -- 16 General appearance: Well appearing, alert, in no acute distress, well-hydrated, well nourished. Skin: Skin color, texture, turgor normal, no suspicious rashes or lesions Extremities: + erythema and generalized swelling of left hand, warmth erythema and discomfort of palpation left great toe, + bunion left great to No lower extremity edema, sclubbing or cyanosis. Good capillary refill. Peripheral pulses: 2/4 DP, 2/4 radial Neuro: Gait normal. Sensation grossly intact. Reviewed chart, outside records, tests I personally interviewed, confirmed and edited the above information if obtained by others. TESTING: Glucose (mg/dL) Date Value 01/20/2018 73 Potassium (mmol/L) Date Value 01/20/2018 4.1 Sodium (mmol/L) Date Value 01/20/2018 139 Chloride (mmol/L) Date Value 01/20/2018 100 CO2 (mmol/L) Date Value 01/20/2018 29 Creatinine (mg/dL) Date Value 01/20/2018 1.12 BUN (mg/dL) Date Value 01/20/2018 26 Anion Gap (mmol/L) Date Value 01/20/2018 10 Calcium (mg/dL) Date Value 01/20/2018 9.3 Glucose (mg/dL) Date Value 01/20/2018 73 Potassium (mmol/L) Date Value 01/20/2018 4.1 Sodium (mmol/L) Date Value 01/20/2018 139 Chloride (mmol/L) Date Value 01/20/2018 100 CO2 (mmol/L) Date Value 01/20/2018 29 Creatinine (mg/dL) Date Value 01/20/2018 1.12 BUN (mg/dL) Date Value 01/20/2018 26 Anion Gap (mmol/L) Date Value 01/20/2018 10 Calcium (mg/dL) Date Value 01/20/2018 9.3 Protein, Total (g/dL) Date Value 01/20/2018 7.1 Albumin (g/dL) Date Value 01/20/2018 4.6 Bilirubin, Total (mg/dL) Date Value 01/20/2018 0.4 Alkaline Phosphatase (U/L) Date Value 01/20/2018 59 AST (U/L) Date Value 01/20/2018 26 ALT (U/L) Date Value 01/20/2018 18 Hemoglobin (g/dL) Date Value 01/20/2018 13.6 Hematocrit (%) Date Value 01/20/2018 43.2 WBC (k/uL) Date Value 01/20/2018 5.24 Cholesterol, Total (mg/dL) Date Value 01/20/2018 225 HDL Cholesterol (mg/dL) Date Value 01/20/2018 62 LDL Cholesterol (mg/dL) Date Value 01/20/2018 148 Triglyceride (mg/dL) Date Value 01/20/2018 73 No results found for: HBA1C Ejection Fraction: No results found IMPRESSION: Ms. Ashton is a 62 year old woman who presents with left hand swelling and pain, left foot swelling pain and erythema for several days. After my examination and review of data, I make the following recommendations. PLAN AND RECOMMENDATIONS: 1. Hand pain, left - ICD9: 729.5, ICD10: M79.642 (primary diagnosis) 2. Pain and swelling of toe of left foot - ICD9: 729.5, 729.81, ICD10: M79.675, M79.89 3. Swelling of left hand - ICD9: 729.81, ICD10: M79.89 - IBUPROFEN 200 MG TABLET - ACETAMINOPHEN ER 650 MG TABLET,EXTENDED RELEASE - PREDNISONE 10 MG TABLET - SED RATE WESTERGREN - TAD BY IFA SCREEN - C-REACTIVE PROTEIN (CRP) - CBC - COMP METABOLIC PANEL - URIC ACID BLOOD - TSH BLD Labs today, follow up one week if not feeling improved. Advised to go to ER if develops chest pain, shortness of breath, or severe worsening of symptoms. Discussed risks, benefits, alternatives, and potential side effects of medications. Ms. Ashton expressed understanding and agreed with the plan. Ban Rodarte APRN.CNS CNOV Observed: 07/18/2018 Status: COMPLETED Source: [place] 9:00 AM [facility] REPOSITORY Office Visit (INTMWS) KAROL ASHTON ([id number]) 1955 F [facility] Date Time Provider Department 07/18/18 9:00 AM BAN RODARTE (MAILE) INTMWS During your visit today, we recorded the following information about you: Pulse Respiration Blood pressure Weight 52/minute 16/minute 114/78 60.3 kg Ban Rodarte APRN.CNS 07/18/2018 10:07 AM Signed Check labwork today Start taking prednisone once daily in the morning May take acetaminophen as needed for pain in addition to prednisone Avoid ibuprofen and naproxen until prednisone is completed then may resume as needed for pain Return to clinic in 1 week if not improving for a recheck Ban Rodarte APRN.SYSTEMS TEST ENGINEER 07/18/2018 10:15 AM Signed OUTPATIENT VISIT DATE July 18, 2018 OUTPATIENT VISIT TYPE ESTABLISHED PRIMARY CARE PHYSICIAN: Anthony Kelly MD CHIEF COMPLAINT: Patient presents with: Edema: hands, feet Pain: Knee, hands, feet History of Present Illness: Karol Ashton is a 62 year old female who was last seen 01/2018 by Anthony Kelly MD She has been seen in the past for ACTIVE PROBLEM LIST Pain in Thoracic Spine Hypothyroid Depression With Anxiety Bunion of Great Toe of Left Foot Mental Disability Asymptomatic Pvcs Presents with significant other who helps provide history. She noted shoulder pain after overexerting a week or 2 ago. This has resolved. Then noted knee pain about a week later. Was putting up [employer] lights. This has resolved. 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 Also has pain redness and swelling of the left great toe. No recent illness. No fevers. No injury is known. No prior occurrence. Pain and discomfort greater than 1 week both areas. Reports right foot was painful and swollen yesterday. No known history of arthritis or gout. No recent hospital or ED visits. No new medical problems or medications. Able to obtain medications. No problems with taking medications or note side effects. PAST MEDICAL HISTORY Diagnosis Date - Anemia - Bunion left foot - Depression - Mental disability - Thyroid disease PAST SURGICAL HISTORY Procedure Laterality Date - EXTRACTION ERUPTED TOOTH/EXR teenager - PAST SURGICAL HISTORY OF eyes - PAST SURGICAL HISTORY OF back surgery (28 years old) FAMILY HISTORY Problem Relation Age of Onset - None Unknown - Stroke Mother - Hypertension Mother - Cancer Father - Stroke Maternal Grandmother Social History Substance Use Topics - Smoking status: Never Smoker - Smokeless tobacco: Never Used - Alcohol use No ALLERGIES: ALLERGIES No Known Allergies MEDICATIONS acetaminophen (ARTHRITIS PAIN RELIEVER) 650 mg CR tablet Take 650 mg by mouth every 8 hours as needed. cholecalciferol, vitamin D3, (VITAMIN D-3) 400 unit cap Take 1 capsule by mouth once daily. citalopram (CELEXA) 20 mg tablet Take 1 tablet by mouth once daily. Fish,Saf,Flx,Brg Oils-O3,6,9#2 (ZABP-YBYU-NENSRA OIL) [phone] mg cap Take by mouth once daily. ibuprofen (MOTRIN) 200 mg tablet Take 200 mg by mouth every 6 hours as needed. levothyroxine (SYNTHROID) 75 mcg tablet TAKE 1 TABLET BY MOUTH ONCE DAILY. TAKE ON EMPTY STOMACH. FOR THYROID melatonin 3 mg tablet Take 2 tablets by mouth once daily. multivitamin tablet Take 1 tablet by mouth once daily. predniSONE (DELTASONE) 10 mg tablet Take 40 mg x 3 days, 20 mg x 3 days, 10 mg x 3 days. Take with food, once daily in the morning REVIEW OF SYSTEMS: GENERAL: Negative for: Weight loss or gain, Fever or Chills, Weakness and Sleep difficulties. Physical Examination: BP 114/78 Pulse 52 Resp 16 Wt 133 lb (60.3kg) BP w/Orthostatic Vitals Date and Time Orthostatic BP Orthostatic Pulse BP Pulse BP Position BP Site BP Cuff Size 07/18/18925 -- -- 114/78 (!) 52 Sitting Left Arm Regular Adult Peak Flow Date and Time PF Resp 07/18/18925 -- 16 General appearance: Well appearing, alert, in no acute distress, well-hydrated, well nourished. Skin: Skin color, texture, turgor normal, no suspicious rashes or lesions Extremities: + erythema and generalized swelling of left hand, warmth erythema and discomfort of palpation left great toe, + bunion left great to No lower extremity edema, sclubbing or cyanosis. Good capillary refill. Peripheral pulses: 2/4 DP, 2/4 radial Neuro: Gait normal. Sensation grossly intact. Reviewed chart, outside records, tests I personally interviewed, confirmed and edited the above information if obtained by others. TESTING: Glucose (mg/dL) Date Value 01/20/2018 73 Potassium (mmol/L) Date Value 01/20/2018 4.1 Sodium (mmol/L) Date Value 01/20/2018 139 Chloride (mmol/L) Date Value 01/20/2018 100 CO2 (mmol/L) Date Value 01/20/2018 29 Creatinine (mg/dL) Date Value 01/20/2018 1.12 BUN (mg/dL) Date Value 01/20/2018 26 Anion Gap (mmol/L) Date Value 01/20/2018 10 Calcium (mg/dL) Date Value 01/20/2018 9.3 Glucose (mg/dL) Date Value 01/20/2018 73 Potassium (mmol/L) Date Value 01/20/2018 4.1 Sodium (mmol/L) Date Value 01/20/2018 139 Chloride (mmol/L) Date Value 01/20/2018 100 CO2 (mmol/L) Date Value 01/20/2018 29 Creatinine (mg/dL) Date Value 01/20/2018 1.12 BUN (mg/dL) Date Value 01/20/2018 26 Anion Gap (mmol/L) Date Value 01/20/2018 10 Calcium (mg/dL) Date Value 01/20/2018 9.3 Protein, Total (g/dL) Date Value 01/20/2018 7.1 Albumin (g/dL) Date Value 01/20/2018 4.6 Bilirubin, Total (mg/dL) Date Value 01/20/2018 0.4 Alkaline Phosphatase (U/L) Date Value 01/20/2018 59 AST (U/L) Date Value 01/20/2018 26 ALT (U/L) Date Value 01/20/2018 18 Hemoglobin (g/dL) Date Value 01/20/2018 13.6 Hematocrit (%) Date Value 01/20/2018 43.2 WBC (k/uL) Date Value 01/20/2018 5.24 Cholesterol, Total (mg/dL) Date Value 01/20/2018 225 HDL Cholesterol (mg/dL) Date Value 01/20/2018 62 LDL Cholesterol (mg/dL) Date Value 01/20/2018 148 Triglyceride (mg/dL) Date Value 01/20/2018 73 No results found for: HBA1C Ejection Fraction: No results found IMPRESSION: Ms. Ashton is a 62 year old woman who presents with left hand swelling and pain, left foot swelling pain and erythema for several days. After my examination and review of data, I make the following recommendations. PLAN AND RECOMMENDATIONS: 1. Hand pain, left - ICD9: 729.5, ICD10: M79.642 (primary diagnosis) 2. Pain and swelling of toe of left foot - ICD9: 729.5, 729.81, ICD10: M79.675, M79.89 3. Swelling of left hand - ICD9: 729.81, ICD10: M79.89 - IBUPROFEN 200 MG TABLET - ACETAMINOPHEN ER 650 MG TABLET,EXTENDED RELEASE - PREDNISONE 10 MG TABLET - SED RATE WESTERGREN - TAD BY IFA SCREEN - C-REACTIVE PROTEIN (CRP) - CBC - COMP METABOLIC PANEL - URIC ACID BLOOD - TSH BLD Labs today, follow up one week if not feeling improved. Advised to go to ER if develops chest pain, shortness of breath, or severe worsening of symptoms. Discussed risks, benefits, alternatives, and potential side effects of medications. Ms. Ashton expressed understanding and agreed with the plan. Ban Rodarte APRN.SYSTEMS TEST ENGINEER Referring Provider: SELF [200] Allergies As of Date: 07/18/2018 (No Known Allergies) Date Reviewed: 07/18/2018 Reviewed by: Aileen Antonio LPN - Fully Assessed Reason for Visit: Edema [39] Cmt: hands, feet Pain [78] Cmt: Knee, hands, feet Primary Visit Diagnosis:Hand pain, left [M79.642] Other Visit Diagnoses:Pain and swelling of toe of left foot [M79.675, M79.89] Swelling of left hand [M79.89] Order(s):predniSONE (DELTASONE) 10 mg tabletTake 40 mg x 3 days, 20 mg x 3 days, 10 mg x 3 days. Take with food, once daily in the morningDisp: 21 tabletRfl: 0 SED RATE WESTERGREN [SQWSR] Order #: [id number] FUTURE TAD BY IFA SCREEN [SQANAIFS] Order #: [id number] FUTURE C-REACTIVE PROTEIN (CRP) [SQCRP] Order #: [id number] FUTURE CBC [SQCBC] Order #: [id number] FUTURE COMP METABOLIC PANEL [SQCMP] Order #: [id number] FUTURE URIC ACID BLOOD [SQURIC] Order #: [id number] FUTURE TSH BLD [SQTSH] Order #: [id number] FUTURE Prescriptions as of 07/18/2018 Sig: ACETAMINOPHEN ER 650 MG TABLE* Take 650 mg by mouth every 8 * CHOLECALCIFEROL (VITAMIN D3) * Take 1 capsule by mouth once * CITALOPRAM 20 MG TABLET Take 1 tablet by mouth once d* FISH,SAFFLWR,FLAX,BORAG OILS-* Take by mouth once daily. IBUPROFEN 200 MG TABLET Take 200 mg by mouth every 6 * LEVOTHYROXINE 75 MCG TABLET TAKE 1 TABLET BY MOUTH ONCE D* MELATONIN 3 MG TABLET Take 2 tablets by mouth once * MULTIVITAMIN TABLET Take 1 tablet by mouth once d* PREDNISONE 10 MG TABLET Take 40 mg x 3 days, 20 mg x * Problem List As Of Date 07/18/2018 Noted Resolved Pain in thoracic spine [M54.6] INVALID FOR* Hypothyroid [E03.9] INVALID FOR* Depression with anxiety [F41.8] INVALID FOR* Bunion of great toe of left foot [M21.612] INVALID FOR* Mental disability [F79] Asymptomatic PVCs [I49.3] INVALID FOR* Other instructions from your clinician: Check labwork today Start taking prednisone once daily in the morning May take acetaminophen as needed for pain in addition to prednisone Avoid ibuprofen and naproxen until prednisone is completed then may resume as needed for pain Return to clinic in 1 week if not improving for a recheck Prescriptions ordered this encounter Disp Refills Start End PREDNISONE 10 MG TABLET 21 t* 0 07/18/2018 Sig: Take 40 mg x 3 days, 20 mg x 3 days, 10 mg x 3 days. Take with food, once daily in the morning Encounter Status:Closed by BAN GARCIA on 07/18/18 CNCO Observed: 05/20/2018 Status: COMPLETED Source: [place] 12:00 AM [facility] REPOSITORY Letter Text [place] [facility] Anthony Kelly MD [address], [place] [address] May 20, 2018 RE: Karol Ashton : 1955 To whom it may concern: Please excuse my patient, Karol Ashton, from jury duty secondary to mental disability that prevents her form being able to serve on jury duty. She has limited comprehension as well as problems with depression and anxiety for which she sees a psychiatrist. Thank you for your understanding, Anthony Kelly MD CBC Collected: 01/20/2018 Status: F Source: [place] 11:05 AM [facility] REPOSITORY TYPE CODE TESTS RESULT OUT OF REFERENCE UNITS RANGE LAB WBC 3.70-11.00 k/uL WBC 5.24 LAB RBC 3.90-5.20 m/uL RBC 4.45 LAB HGB 11.5-15.5 g/dL Hemoglobin 13.6 LAB HCT 36.0-46.0 % Hematocrit 43.2 LAB MCV 80.0-100.0 fL MCV 97.1 LAB MCH 26.0-34.0 pG MCH 30.6 LAB MCHC 30.5-36.0 g/dL MCHC 31.5 LAB RDWCV 11.5-15.0 % RDW-CV 13.4 LAB PLTCT 150-400 k/uL Platelet Count 253 LAB MPV 9.0-12.7 fL MPV 10.7 LAB ABSNUC <0.01 k/uL Absolute nRBC <0.01 Performed By: #### CBC, CMP, LIPB, FREET3, FT4, TSH #### [facility] [address] [place], [place] [address] COMP METABOLIC PANEL Collected: 01/20/2018 Status: F Source: [place] 11:05 AM [facility] REPOSIT[facility] TYPE CODE TESTS RESULT OUT OF REFERENCE UNITS RANGE LAB TP 6.3-8.0 g/dL Protein, Total 7.1 LAB ALB 3.9-4.9 g/dL Albumin 4.6 LAB CA 8.5-10.2 mg/dL Calcium, Total 9.3 LAB TBIL 0.2-1.3 mg/dL Bilirubin, Total 0.4 LAB ALKP 32-117 U/L Alkaline Phosphatase 59 LAB AST 13-35 U/L AST 26 LAB GLU 74-99 mg/dL Low Glucose 73 Result Comment: The [place] [employer] (ADA) provides guidance for cutoff values for fasting glucose and random glucose. The ADA defines fasting as no caloric intake for at least 8 hours. Fas ting plasma glucose results between 100 to 125 mg/dL indicate increased risk for diabetes (prediabetes). Fasting plasma glucose results greater than or equal to 126 mg/dL meet the criteria for diagnosis of diabetes. In the absence of unequivocal hyperglycemia, results should be confirmed by repeat testing. In a patient with classic symptoms of hyperglycemia or hyperglycemic crisis, random plasma glucose results greater than or equal to 200 mg/dL meet the criteria for diagnosis of diabetes. Reference: Standards of Medical Care in Diabetes 2016, [place] [employer]. Diabetes Care. 2016.39(Suppl 1). LAB BUN 7-21 mg/dL BUN High 26 LAB CRET 0.58-0.96 mg/dL Creatinine High 1.12 LAB NA 136-144 mmol/L Sodium 139 LAB K 3.7-5.1 mmol/L Potassium 4.1 LAB CL 97-105 mmol/L Chloride 100 LAB CO2 22-30 mmol/L CO2 29 LAB AGAP 9-18 mmol/L Anion Gap 10 LAB ALT 7-38 U/L ALT 18 LAB GFRAA eGFR- Amer. 60 LAB GFRNAA . eGFR-All Other Races 49 Result Comment: eGFR (Estimated GFR) Units of measure: mL/min/1.73 meters squared eGFR is derived from the reexpressed MDRD Study equation using the following parameters: serum creatinine, age, gender and race. The creatinine assay has been calibrated to be traceable to IDMS. An eGFR <60 mL/min/1.73m2 for >3 months is consistent with chronic kidney disease. Refer to KDOQI guidelines for clinical interpretation. In patients with unstable renal function, e.g. those with acute kidney injury, the eGFR may not accurately reflect actual GFR. Performed By: #### CBC, CMP, LIPB, FREET3, FT4, TSH #### [facility] [address] [place] [id number] LIPID PANEL, BASIC Collected: 01/20/2018 Status: F Source: [place] 11:05 AM [facility] REPOSITORY TYPE CODE TESTS RESULT OUT OF REFERENCE UNITS RANGE LAB CHOL <200 mg/dL Cholesterol High 225 Result Comment: <200 mg/dL, Desirable 200-239 mg/dL, Borderline high >239 mg/dL, High LAB TRIGLY <150 mg/dL Triglyceride 73 Result Comment: <150 mg/dL, Normal 150-199 mg/dL, Borderline high 200-499 mg/dL, High >499 mg/dL, Very high LAB HDL >39 mg/dL HDL-Cholesterol 62 Result Comment: 40-59 mg/dL, Acceptable >59 mg/dL, High: Negative risk factor for coronary heart disease <40 mg/dL, Low: Positive risk factor for coronary heart disease LAB LDL <100 mg/dL LDL-Cholesterol High 148 Result Comment: <100 mg/dL, Optimal 100-129 mg/dL, Near optimal/above optimal 130-159 mg/dL, Borderline high 160-189 mg/dL, High >189 mg/dL, Very high Secondary prevention optimal LDL Cholesterol levels are recommended to be < 70 mg/dL LAB NONHDL <130 mg/dL Non HDL High Cholesterol 163 Result Comment: <130 mg/dL, Optimal 130-159 mg/dL, Near optimal/above optimal 160-189 mg/dL, Borderline high 190-219 mg/dL, High >219 mg/dL, Very high Secondary prevention optimal non HDL Cholesterol levels are recommended to be < 100 mg/dL LAB FT hrs Fasting Time 16 LAB VLDL <30 mg/dL VLDL Cholesterol 15 LAB TCHDL <5.10 TC:HDL Ratio 3.63 LAB LDLHDL <2.54 LDL:HDL Ratio 2.39 Result Comment: Reference: 1. National Cholesterol Education Program ATP III Guideline At-A-Glance Quick Desk Reference: National Heart, Lung, and Blood [place]. National Institutes of Health. 2001: NIH Publication No. 01-3305. 2. An International Atherosclerosis Society position paper: global recommendations for the management of dyslipidemia: executive summary, Atherosclerosis. 2014: 232(2):410-413. Performed By: #### CBC, CMP, LIPB, FREET3, FT4, TSH #### [place] [phone] FREE T3 Collected: 01/20/2018 Status: F Source: [place] 11:05 AM [facility] REPOSITORY TYPE CODE TESTS RESULT OUT OF RANGE REFERENCE UNITS LAB FREET3 2.3-4.1 pg/mL Free T3 2.8 Performed By: #### CBC, CMP, LIPB, FREET3, FT4, TSH #### [place] [phone] FREE T4 Collected: 01/20/2018 Status: F Source: [place] 11:05 AM [facility] [facility] REPOSITORY TYPE CODE TESTS RESULT OUT OF RANGE REFERENCE UNITS LAB FT4 0.9-1.7 ng/dL Free T4 1.5 Performed By: #### CBC, CMP, LIPB, FREET3, FT4, TSH #### [place] [phone] TSH Collected: 01/20/2018 Status: F Source: [place] 11:05 AM [facility] REPOSITORY TYPE CODE TESTS RESULT OUT OF RANGE REFERENCE UNITS LAB TSH 0.400-5.500 uU/mL TSH 4.720 Performed By: #### CBC, CMP, LIPB, FREET3, FT4, TSH #### [place] [phone] PROGRESS Observed: 01/20/2018 Status: COMPLETED Source: [place] 10:10 AM [facility] REPOSITORY HNO ID: [id number] Author: Anthony Kelly Service: (none) Author Type: Physician Type: Progress Notes Filed: 01/28/2018 12:59 AM Note Text: Patient presents with: Recheck: 6 month follow up SUBJECTIVE: Karol Felix José Luis Zachery is a 62 year old year old lady here today for 6 month follow up appointment for review of medical conditions. Blossom Casimiro present at her appointment. No symptoms of feeling like thyroid replacement too high or too low. Right foot hurting off and on. Sometimes while sitting, sometimes while walking. Big toe MTP joint. [place] for foot doctor--last time got orthotics about 2 years ago. Not wearing her slippers with support at home--wore our so wearing slipper socks. Noted leg cramps right side at night; sometimes left. Sometimes eats only 1 meal a day because of getting distracted with poetry. PAST MEDICAL HISTORY Diagnosis Date - Anemia - Bunion left foot - Depression - Mental disability - Thyroid disease Current Outpatient Prescriptions: levothyroxine (SYNTHROID) 75 mcg tablet Take 1 tablet by mouth once daily. MELATONIN-TRYPTOPHAN ORAL Take 3 mg by mouth twice daily as needed (1 to 2 tablets by mouth daily at bedtime as needed for sleep). citalopram (CELEXA) 20 mg tablet Take 1 tablet by mouth once daily. (Dr. Sarkar) multivitamin tablet Take 1 tablet by mouth once daily. No current facility-administered medications for this visit. OBJECTIVE: BP 94/74 Pulse 76 Resp 16 Wt 58.5 kg (129 lb) BMI 26.50 kg/m? Patient is alert, oriented times 3, no apparent distress, affect is bright, reactive. Last 5 Encounter BP Readings: Date: BP: 01/20/2018 94/74 07/16/2017 98/72 11/21/2015 100/64 06/29/2014 106/78 03/01/2014 124/62 Last 5 Encounter Wt Readings: Date: Wt: 01/20/2018 58.5 kg (129 lb) 07/16/2017 56.7 kg (125 lb) 11/21/2015 58.5 kg (129 lb) 06/29/2014 63.5 kg (140 lb) 03/01/2014 60.8 kg (134 lb) Last 5 Encounter Pulse Readings: Date: Pulse: 01/20/2018 76 07/16/2017 62 11/21/2015 52 06/29/2014 78 03/01/2014 84 Heart: Regular rate, rhythm, no murmurs, gallops, rubs. Lungs: Clear to auscultation, bilaterally, breathing non labored. Ext: No cyanosis, clubbing, or edema. Component Latest Ref Rng AND Units 11/12/2011 03/25/2014 11/18/2015 04/15/2017 Glucose 65 - 100 mg/dL 79 BUN 8 - 25 mg/dL 24 Creatinine 0.70 - 1.40 mg/dL 1.05 Sodium 132 - 148 mmol/L 141 Potassium 3.5 - 5.0 mmol/L 4.1 Chloride 98 - 110 mmol/L 103 CO2 23 - 32 mmol/L 28 Anion Gap 0 - 15 mmol/L 10 Calcium 8.5 - 10.5 mg/dL 8.9 eGFR- >60 eGFR-All Other Races . 54 Free T4 0.9 - 1.7 ng/dL 1.6 1.7 TSH 0.400 - 5.500 uU/mL 3.180 4.440 0.332 (L) 1.040 ASSESSMENT AND PLAN: Encounter Diagnosis ICD-10-CM 1. Acquired hypothyroidism E03.9 TSH BLD T4 FREE/FREE THYROX T3 FREE BLD 2. Depression with anxiety F41.8 3. Encounter for long-term current use of medication Z79.899 COMP METABOLIC PANEL CBC LIPID PANEL BASIC 4. Elevated LDL cholesterol level E78.00 LIPID PANEL BASIC 5. Leg cramps R25.2 right calf more than left 6. Right foot pain M79.671 MTP joint; flat feet Above issues addressed with patient. Patient involved in shared decision making for management of her medical issues. History and medications reviewed. Epic updated as needed Refills taken care of and meds adjusted as indicated after reviewed history, exam and labs. Health Maintenance reviewed. Updated record and/or ordered tests as recorded. Encouraged on efforts at healthy diet and regular exercise and adequate sleep. Needs to keep working on diet and exercise with lifestyle changes for effective weight loss as well as control of lipids and HTN. Clinically euthyroid. TSH fine. Continue to adjust dose of replacement as indicated based on symptoms and labs. Depression and anxiety controlled fairly well. Further evaluation and treatment as indicated. 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 Conservative management for feet issues now. The majority of the visit was spent counseling and/or coordinating care for the patient. Nrko-wj-mcsj time was at least 25 minutes. Anthony Kelly MD CNOV Observed: 01/20/2018 Status: COMPLETED Source: [place] 9:40 AM [facility] REPOSITORY Office Visit (INTMWS) KAROL ASHTON ([id number]) 1955 F [facility] Date Time Provider Department 01/20/18 9:40 AM ANTHONY KELLY [place] During your visit today, we recorded the following information about you: Pulse Respiration Blood pressure Weight 76/minute 16/minute 94/74 58.5 kg Anthony Kelly MD 01/28/2018 12:59 AM Signed Patient presents with: Recheck: 6 month follow up SUBJECTIVE: Karol Ashton is a 62 year old year old lady here today for 6 month follow up appointment for review of medical conditions. Blossom Casimiro present at her appointment. No symptoms of feeling like thyroid replacement too high or too low. Right foot hurting off and on. Sometimes while sitting, sometimes while walking. Big toe MTP joint. [place] for foot doctor--last time got orthotics about 2 years ago. Not wearing her slippers with support at home--wore our so wearing slipper socks. Noted leg cramps right side at night; sometimes left. Sometimes eats only 1 meal a day because of getting distracted with poetry. PAST MEDICAL HISTORY Diagnosis Date - Anemia - Bunion left foot - Depression - Mental disability - Thyroid disease Current Outpatient Prescriptions: levothyroxine (SYNTHROID) 75 mcg tablet Take 1 tablet by mouth once daily. MELATONIN-TRYPTOPHAN ORAL Take 3 mg by mouth twice daily as needed (1 to 2 tablets by mouth daily at bedtime as needed for sleep). citalopram (CELEXA) 20 mg tablet Take 1 tablet by mouth once daily. (Dr. Sarkar) multivitamin tablet Take 1 tablet by mouth once daily. No current facility-administered medications for this visit. OBJECTIVE: BP 94/74 Pulse 76 Resp 16 Wt 58.5 kg (129 lb) BMI 26.50 kg/m? Patient is alert, oriented times 3, no apparent distress, affect is bright, reactive. Last 5 Encounter BP Readings: Date: BP: 01/20/2018 94/74 07/16/2017 98/72 11/21/2015 100/64 06/29/2014 106/78 03/01/2014 124/62 Last 5 Encounter Wt Readings: Date: Wt: 01/20/2018 58.5 kg (129 lb) 07/16/2017 56.7 kg (125 lb) 11/21/2015 58.5 kg (129 lb) 06/29/2014 63.5 kg (140 lb) 03/01/2014 60.8 kg (134 lb) Last 5 Encounter Pulse Readings: Date: Pulse: 01/20/2018 76 07/16/2017 62 11/21/2015 52 06/29/2014 78 03/01/2014 84 Heart: Regular rate, rhythm, no murmurs, gallops, rubs. Lungs: Clear to auscultation, bilaterally, breathing non labored. Ext: No cyanosis, clubbing, or edema. Component Latest Ref Rng AND Units 11/12/2011 03/25/2014 11/18/2015 04/15/2017 Glucose 65 - 100 mg/dL 79 BUN 8 - 25 mg/dL 24 Creatinine 0.70 - 1.40 mg/dL 1.05 Sodium 132 - 148 mmol/L 141 Potassium 3.5 - 5.0 mmol/L 4.1 Chloride 98 - 110 mmol/L 103 CO2 23 - 32 mmol/L 28 Anion Gap 0 - 15 mmol/L 10 Calcium 8.5 - 10.5 mg/dL 8.9 eGFR- >60 eGFR-All Other Races . 54 Free T4 0.9 - 1.7 ng/dL 1.6 1.7 TSH 0.400 - 5.500 uU/mL 3.180 4.440 0.332 (L) 1.040 ASSESSMENT AND PLAN: Encounter Diagnosis ICD-10-CM 1. Acquired hypothyroidism E03.9 TSH BLD T4 FREE/FREE THYROX T3 FREE BLD 2. Depression with anxiety F41.8 3. Encounter for long-term current use of medication Z79.899 COMP METABOLIC PANEL CBC LIPID PANEL BASIC 4. Elevated LDL cholesterol level E78.00 LIPID PANEL BASIC 5. Leg cramps R25.2 right calf more than left 6. Right foot pain M79.671 MTP joint; flat feet Above issues addressed with patient. Patient involved in shared decision making for management of her medical issues. History and medications reviewed. Epic updated as needed Refills taken care of and meds adjusted as indicated after reviewed history, exam and labs. Health Maintenance reviewed. Updated record and/or ordered tests as recorded. Encouraged on efforts at healthy diet and regular exercise and adequate sleep. Needs to keep working on diet and exercise with lifestyle changes for effective weight loss as well as control of lipids and HTN. Clinically euthyroid. TSH fine. Continue to adjust dose of replacement as indicated based on symptoms and labs. Depression and anxiety controlled fairly well. Further evaluation and treatment as indicated. 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 Conservative management for feet issues now. The majority of the visit was spent counseling and/or coordinating care for the patient. Egnv-qh-fkjy time was at least 25 minutes. Anthony Kelly MD Referring Provider: ANTHONY KELLY [[id number]] Allergies As of Date: 01/20/2018 (No Known Allergies) Date Reviewed: 01/20/2018 Reviewed by: María Givens LPN - Fully Assessed Reason for Visit: Recheck [92] Cmt: 6 month follow up Primary Visit Diagnosis:Acquired hypothyroidism [E03.9] Other Visit Diagnoses:Depression with anxiety [F41.8] Encounter for long-term current use of medication [Z79.899] Elevated LDL cholesterol level [E78.00] Leg cramps [R25.2] Comment:right calf more than left Right foot pain [M79.671] Comment:MTP joint; flat feet Order(s):COMP METABOLIC PANEL [SQCMP] Order #: [id number] FUTURE CBC [SQCBC] Order #: [id number] FUTURE TSH BLD [SQTSH] Order #: [id number] FUTURE T4 FREE/FREE THYROX [SQFT4] Order #: [id number] FUTURE T3 FREE BLD [SQFREET3] Order #: [id number] FUTURE LIPID PANEL BASIC [SQLIPB] Order #: [id number] FUTURE Prescriptions as of 01/20/2018 Sig: LEVOTHYROXINE 75 MCG TABLET Take 1 tablet by mouth once d* MELATONIN-TRYPTOPHAN ORAL Take 3 mg by mouth twice cj* CITALOPRAM 20 MG TABLET Take 1 tablet by mouth once d* MULTIVITAMIN TABLET Take 1 tablet by mouth once d* CHOLECALCIFEROL (VITAMIN D3) * Take 1 capsule by mouth once * FISH,SAFFLWR,FLAX,BORAG OILS-* Take by mouth once daily. Problem List As Of Date 01/20/2018 Noted Resolved Pain in thoracic spine [M54.6] INVALID FOR* Hypothyroid [E03.9] INVALID FOR* Depression with anxiety [F41.8] INVALID FOR* Bunion of great toe of left foot [M21.612] INVALID FOR* Mental disability [F79] Asymptomatic PVCs [I49.3] INVALID FOR* Disposition: Return in about 6 months (around 07/22/2018) for Yearly exam and follow up (40 min). Follow-up and Disposition History Recorded Encounter Status:Closed by ANTHONY KELLY MD on 01/28/18 FECAL OCCULT BLD Collected: 01/20/2018 Status: F Source: [facility] 8:00 AM [facility] REPOSITORY TYPE CODE TESTS RESULT OUT OF REFERENCE UNITS RANGE LAB IFO Negative Immuno Negative FOB Result Comment: This test was developed and its performance characteristics determined by [facility] [place] ([facility]). It has not been cleared or approved by the FDA. [facility] is regulated under CLIA as qualified to perform high-complexity testing. This test is used for clinical purposes. It should not be regarded as investigational or for research. Performed By: #### IFOBT #### [facility] [address] [place] [address] ALLERGIES ALLERGIES DATE TYPE / CODE NAME / CODE REACTION SEVERITY SOURCE 08/13/2018 Drug No Known Unknown [facility] Allergy/416 Allergies/C89526 Hospital 107879(SNOM 0388(RXNORM) Repository ED CT) Drug NO KNOWN [facility] Class/69528 ALLERGIES Main [place] 1003(SNOMED Repository CT) ENCOUNTERS ENCOUNTERS ADMIT/DISCHARGE ACCOUNT ADMITTING ENCOUNTER LOCATION SOURCE NUMBER CLASS 08/20/2018 [id number] [facility] ing:EN Repository 08/20/2018/08/20/[id number] ing:ENRoom: Repository AC10 08/15/2018/08/15/19 [id number] Ambulatory [address] Repository 08/15/2018/08/15/19 [id number] Ambulatory [address] Repository 08/12/2018/08/12/19 [id number] Ambulatory [address] Repository 08/12/2018/08/12/19 [id number] Ambulatory BMSBuilding:Rhiannon Farmer 19 MS.WSA [facility] Repository 07/31/2018/08/04/20 [id number] Ambulatory [place] [facility] [address] [place] Repository 07/30/2018/07/30/20 [id number] Ambulatory [place] [facility] [address] [place] Repository 07/30/2018/08/26/19 [id number] Ambulatory [place] [facility] [address] [place] Repository 07/18/2018/07/18/20 [id number] Ambulatory [place] [facility] [address] [place] Repository 07/18/2018/07/21/20 [id number] Ambulatory [place] [facility] [address] [place] Repository 01/20/2018/01/21/20 [id number] Ambulatory [place] [facility] [address] [place] Repository 01/20/2018/01/21/20 [id number] Ambulatory [place] [facility] Repository 01/20/2018/01/30/20 [id number] Ambulatory [place] [facility] Repository PAYERS PAYERS ENCOUNTER GUARANTOR PAYER SUBSCRIBER SOURCE 08/20/2018 KAROL Ordonez Primary KAROL Farmer [id number] Insurance:CARESOURCEP BARBATODOB: [facility] [address] olicy Number: [id number] [id number] Repository [address]Kgd: (330) Date:2018-08-19P O [phone] () [address]ATTN: [place] [address]ZT: 08/20/2018 Secondary NOT GIVENUNK [place] Insurance:SELF PAY [facility] Number: Effective Repository Date:2018-08-19 08/20/2018 KAROL Ordonez Primary KAROL Farmer [id number] Insurance:CARESOURCEP BARBATODOB: [facility] [address] olicy Number: [id number] [id number] Repository [address]Tvp: [phone]) Date:2018-08-12P O [phone] (HP) [address]ATTN: [place] [address]AI: 08/20/2018 Secondary NOT GIVENUNK [place] Insurance:SELF PAY [facility] Number: Effective Repository Date:2018-08-19 08/12/2018 KAROL HENRY Art KAROL Farmer [id number] Insurance:CARESOURCEP BARBATODOB: Community [address] olicy Number: [id number] [id number] Repository [address]Axb: [phone]) Date:2018-07-31 [phone] () [address]ATTN: [place] [address]MU: 08/12/2018 Secondary NOT GIVENUNK [place] Insurance:SELF PAY [facility]: Effective Repository Date:2018-08-11
== END 2018-08-20 08:10 | disposition home or self-care (01) ==
LOC: EN 05:42 → AC 05:42
PROVIDERS: Family Provider Internal Medicine; PCP Internal Medicine; Referring Provider Surgery; Visit Provider Surgery
PROC: 0DJD8ZZ Inspection of Lower Intestinal Tract, Via Natural or Artificial Opening Endoscopic (ICD-10-PCS; CPT 45378; principal; 2018-08-19 07:10)
DX: D50.9 Iron deficiency anemia, unspecified (principal); K21.0 Gastro-esophageal reflux disease with esophagitis; K44.9 Diaphragmatic hernia without obstruction or gangrene; K31.7 Polyp of stomach and duodenum; K31.89 Other diseases of stomach and duodenum; K64.9 Unspecified hemorrhoids; D12.3 Benign neoplasm of transverse colon; K57.30 Diverticulosis of large intestine without perforation or abscess without bleeding; K29.70 Gastritis, unspecified, without bleeding
CPT/HCPCS: 43239; 45385; 88305; 88312; 88313; 88342; J7120

== ENCOUNTER 2023-07-24 13:04 | Emergency (ER) | payer MEDICAID, SELFPAY ==
[2023-07-24 13:05] VITALS: BP 151/112; PULSE 52; RESP 16; TEMP 36.3; O2SAT 97; BMI 23.5
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
[2023-07-24] MEDS: HYDROcodone Bitartrate/Apap 5/325 Tablet PO (14:26)
[2023-07-24] MEDS: Diphth,Pertuss(Acell),Tet Vac 0.5 ML Vial IM (14:29)
[2023-07-24 14:30] VITALS: BP 131/90; PULSE 83; O2SAT 98
== END 2023-07-24 15:12 | disposition home or self-care (01) ==
PROVIDERS: Emergency Provider Emergency Medicine; PCP Internal Medicine; Visit Provider Emergency Medicine
DX: T20.212A Burn of second degree of left ear [any part, except ear drum], initial encounter (principal); T20.29XA Burn of second degree of multiple sites of head, face, and neck, initial encounter; F41.9 Anxiety disorder, unspecified; D64.9 Anemia, unspecified; F32.A Depression, unspecified; F79 Unspecified intellectual disabilities; E07.9 Disorder of thyroid, unspecified; M19.90 Unspecified osteoarthritis, unspecified site; Z79.899 Other long term (current) drug therapy; X10.1XXA Contact with hot food, initial encounter; Z23 Encounter for immunization
CPT/HCPCS: 90715; 99282